=== PATIENT | female | born 1945 ===

== ENCOUNTER → 2017-05-15 | Outpatient (CLI) | payer MEDICARE, OTHER ==
[~2017-05-15] MED LIST: ACET325 PO; AMLO5 PO; AMOCLA875 PO; ASPI325 PO; ASPI81CH PO; ATOR10 PO; ATOR80 PO; Amaryl1 MG PO; BISA10S PR; CLOP75 PO; Culturelle1 CAP PO; D3-20002000 UNIT PO; DOCU100; DOCU100 PO; FLUO10 PO; GLIM2 PO; Glimepiride1 MG PO; HYDCHL12.5 PO; HYDR1TAB94 PO; INSLI75/25; Imdur30 MG PO; Invanz1 GM IJ; Keflex500 MG PO; MAGCIT300 PO; METF500; METF500 PO; METO100ER; METO100ER PO; METO25 PO; Macrobid 100 M100 MG PO; Miralax17 GM PO; NITR100CA PO; Novolog Fl100 UNIT/1 SC; OLME20 PO; OMEPRAZOLE MAGN20 MG PO; ONDA4 PO; OXYACE5T PO; PANT40 PO; Pantoprazole So40 MG PO; Percocet 5-3251 EACH PO; SULTRIDS PO; Zofran4 MG PO
[2017-05-15 18:31] LABS: Appearance, Urine Turbid (Clear); Blood, Urine 5+ (Neg); Color, Urine Yellow (P-Yellow); Glucose Qualitative, Urine 4+ (Neg); Ketones, Urine 1+ (Neg); Leukocyte Esterase, Urine 3+ (Neg); Nitrite, Urine Neg (Neg); Protein, Urine 3+ (Neg); Specific Gravity, Urine 1.025 (1.003-1.022); Urobilinogen, Urine 2+ (Normal)
[2017-05-15 19:00] LABS: Bilirubin, Urine 1+ (Neg)
[2017-05-15 19:02] LABS: Bacteria Mod /hpf; Red Blood Cells, Urine TNTC /hpf (0-2); Squamous Epithelial Cells Few /hpf (Few); White Blood Cells, Urine TNTC /hpf (0-5)
[2017-05-15 19:07] LABS: U Amphetamine Screen Not Detected; U Barbituate Screen Not Detected; U Benzodiazapine Screen DETECTED; U Buprenorphine Screen Not Detected; U Cannabinoids Screen Not Detected; U Cocaine Screen Not Detected; U Methadone Screen Not Detected; U Methamphetamine Screen Not Detected; U Opiates Screen Not Detected; U Oxycodone Screen Not Detected; U Phencyclidine Screen Not Detected; U Propoxyphene Screen Not Detected
== END | disposition home or self-care (01) ==
LOC: LAB 18:05
PROVIDERS: Internal Medicine Hematology & Oncology
DX: N95.0 Postmenopausal bleeding (principal); Z79.899 Other long term (current) drug therapy
CPT/HCPCS: 81001; 87077; 87086; 87186

== ENCOUNTER 2017-05-31 14:06 | Observation (INO) | payer MEDICARE, OTHER ==
[~2017-05-31] VITALS: Ht 142.2 cm; Wt 72.6 kg
[~2017-05-31 14:06] MED LIST changes: -NITR100CA PO; -ONDA4 PO
[2017-05-31 16:36] LABS: BASOPHILS ABSOLUTE AUTO 0.04 K/mm3 (0.00-0.23); BASOPHILS PERCENT AUTO 1 % (0-2); EOSINOPHILS ABSOLUTE AUTO 0.11 K/mm3 (0.00-0.68); EOSINOPHILS PERCENT AUTO 1 % (0-6); Hematocrit 39.6 % (33.0-51.0); Hemoglobin 13.2 g/dL (11.5-16.0); IMMATURE GRAN ABSOLUTE AUTO 0.02 K/mm3 (0.00-0.10); IMMATURE GRAN PERCENT AUTO 0 % (0-1); LYMPHOCYTES ABSOLUTE AUTO 1.47 K/mm3 (0.84-5.20); LYMPHOCYTES PERCENT AUTO 17 % (21-46); MONOCYTES ABSOLUTE AUTO 0.33 K/mm3 (0.16-1.47); MONOCYTES PERCENT AUTO 4 % (4-13); Mean Corpuscular HGB 28.9 pg (26.0-34.0); Mean Corpuscular HGB Conc 33.3 g/dL (31.5-36.5); Mean Corpuscular Volume 87 fL (80-100); Mean Platelet Volume 12.3 fL (9.1-12.4); NEUTROPHILS ABSOLUTE AUTO 6.57 K/mm3 (1.96-9.15); NEUTROPHILS PERCENT AUTO 77 % (41-73); Platelet Count 198 K/mm3 (150-400); RDW Coefficient Variation 12.1 % (11.7-14.2); RDW Standard Deviation 38.8 fL (35.1-46.3); Red Blood Cell Count 4.56 M/mm3 (3.80-5.20); White Blood Cell Count 8.54 K/mm3 (4.00-11.30)
[2017-05-31 17:02] LABS: Alanine Aminotransfer (ALT/SGP 27 U/L (12-78); Alk Phos 201 U/L (50-136); Anion Gap 7 mmol/L (6-16); Aspartate Aminotrans (AST/SGOT 21 U/L (12-37); Bilirubin, Total 0.7 mg/dL (0.1-1.0); Blood Urea Nitrogen 30 mg/dL (8-24); Bun/Creatinine Ratio 33.5 (12.0-20.0); CO2, Blood 28 mmol/L (21-32); Calcium, Blood 9.2 mg/dL (8.5-10.1); Chloride, Blood 103 mmol/L (98-108); Globulin, Blood 4.2 g/dL (2.2-4.0); Glomerular Filtration Rate >60 (60-); Glucose, Blood 154 mg/dL (70-99); Potassium, Blood 4.4 mmol/L (3.5-5.5); Sodium, Blood 138 mmol/L (136-145); Total Protein, Blood 8.2 g/dL (6.4-8.2); Troponin I <0.015 ng/mL (0.000-0.040)
[2017-05-31 18:36] LABS: Source, Urine Voided
[2017-05-31 18:39] LABS: Bilirubin, Urine Neg (Neg); Blood, Urine 4+ (Neg); Glucose Qualitative, Urine Neg (Neg); Ketones, Urine Neg (Neg); Leukocyte Esterase, Urine 2+ (Neg); Nitrite, Urine Pos (Neg); Protein, Urine 2+ (Neg); Urobilinogen, Urine 1+ (Normal)
[2017-05-31 19:09] LABS: Appearance, Urine Hazy (Clear); Color, Urine Yellow (P-Yellow); Squamous Epithelial Cells Many /hpf (Few)
[2017-05-31 19:10] LABS: Bacteria Many /hpf
[2017-06-01] MEDS ORDERED: ACET325 PO (08:57)
[2017-06-01] MEDS ORDERED: ONDA4 PO (08:58)
[2017-06-01] MEDS ORDERED: NITR100CA PO (08:58)
== END 2017-06-01 11:39 | disposition home or self-care (01) ==
LOC: ER 14:06 → MEDS 14:07 → ER 14:07 → MEDS 23:30 → ENPENDDIS 06-01 09:46 → EDPENDDIS 06-01 09:46 → MEDS 06-01 11:39
PROVIDERS: Emergency Medicine; Physician Assistant
DX: R07.89 Other chest pain (principal); N39.0 Urinary tract infection, site not specified; K21.9 Gastro-esophageal reflux disease without esophagitis; R11.2 Nausea with vomiting, unspecified; R31.9 Hematuria, unspecified; I10 Essential (primary) hypertension; E11.9 Type 2 diabetes mellitus without complications; Z86.73 Personal history of transient ischemic attack (TIA), and cerebral infarction without residual deficits; Z90.49 Acquired absence of other specified parts of digestive tract; Z79.82 Long term (current) use of aspirin; Z79.01 Long term (current) use of anticoagulants; Z79.899 Other long term (current) drug therapy
CPT/HCPCS: 36415; 71046; 74176; 80053; 81001; 82947; 83690; 84484; 85025; 87077; 87086; 87186; 93005; 93010; 96374; 96375; 99285; G0378; J1885; J2405

== ENCOUNTER → 2017-06-29 | Outpatient (CLI) | payer MEDICARE, OTHER ==
[~2017-06-29] MED LIST changes: +NITR100CA PO; +ONDA4 PO
[2017-06-29 18:36] LABS: Appearance, Urine Cloudy (Clear); Blood, Urine 3+ (Neg); Color, Urine Yellow (P-Yellow); Glucose Qualitative, Urine 1+ (Neg); Ketones, Urine 2+ (Neg); Leukocyte Esterase, Urine 3+ (Neg); Nitrite, Urine Neg (Neg); Protein, Urine 3+ (Neg); Specific Gravity, Urine 1.025 (1.003-1.022); Urobilinogen, Urine 2+ (Normal)
[2017-06-29 18:37] LABS: Bilirubin, Urine 2+ (Neg)
[2017-06-29 18:43] LABS: Bacteria Many /hpf; Red Blood Cells, Urine 0-2 /hpf (0-2); Squamous Epithelial Cells Mod /hpf (Few); White Blood Cells, Urine 25-50 /hpf (0-5)
== END ==
LOC: LAB 11:00
PROVIDERS: Internal Medicine Hematology & Oncology
DX: N39.0 Urinary tract infection, site not specified (principal)
CPT/HCPCS: 81001; 87077; 87086; 87186

== ENCOUNTER 2017-07-16 19:16 | Emergency (ER) | payer MEDICARE, OTHER ==
[~2017-07-16] VITALS: Ht 142.2 cm; Wt 72.6 kg
[2017-07-16 20:07] LABS: BASOPHILS ABSOLUTE AUTO 0.03 K/mm3 (0.00-0.23); BASOPHILS PERCENT AUTO 0 % (0-2); EOSINOPHILS ABSOLUTE AUTO 0.07 K/mm3 (0.00-0.68); EOSINOPHILS PERCENT AUTO 1 % (0-6); Hematocrit 38.8 % (33.0-51.0); Hemoglobin 13.1 g/dL (11.5-16.0); IMMATURE GRAN ABSOLUTE AUTO 0.02 K/mm3 (0.00-0.10); IMMATURE GRAN PERCENT AUTO 0 % (0-1); LYMPHOCYTES ABSOLUTE AUTO 1.64 K/mm3 (0.84-5.20); LYMPHOCYTES PERCENT AUTO 20 % (21-46); MONOCYTES ABSOLUTE AUTO 0.34 K/mm3 (0.16-1.47); MONOCYTES PERCENT AUTO 4 % (4-13); Mean Corpuscular HGB 29.1 pg (26.0-34.0); Mean Corpuscular HGB Conc 33.8 g/dL (31.5-36.5); Mean Corpuscular Volume 86 fL (80-100); Mean Platelet Volume 12.1 fL (9.1-12.4); NEUTROPHILS ABSOLUTE AUTO 6.02 K/mm3 (1.96-9.15); NEUTROPHILS PERCENT AUTO 74 % (41-73); Platelet Count 223 K/mm3 (150-400); RDW Coefficient Variation 13.1 % (11.7-14.2); White Blood Cell Count 8.12 K/mm3 (4.00-11.30)
[2017-07-16 20:26] LABS: Alanine Aminotransfer (ALT/SGP 26 U/L (12-78); Albumin, Blood 3.5 g/dL (3.4-5.0); Albumin/Globulin Ratio 0.9 (0.8-1.8); Alk Phos 167 U/L (50-136); Anion Gap 9 mmol/L (6-16); Aspartate Aminotrans (AST/SGOT 21 U/L (12-37); Bilirubin, Total 1.4 mg/dL (0.1-1.0); Blood Urea Nitrogen 22 mg/dL (8-24); Bun/Creatinine Ratio 22.4 (12.0-20.0); CO2, Blood 25 mmol/L (21-32); Calcium, Blood 8.6 mg/dL (8.5-10.1); Chloride, Blood 107 mmol/L (98-108); Creatinine, Blood 0.98 mg/dL (0.40-1.00); Globulin, Blood 3.8 g/dL (2.2-4.0); Glomerular Filtration Rate 59 (60-); Glucose, Blood 107 mg/dL (70-99); Potassium, Blood 3.8 mmol/L (3.5-5.5); Sodium, Blood 141 mmol/L (136-145); Total Protein, Blood 7.3 g/dL (6.4-8.2)
[2017-07-16 22:24] LABS: Troponin I <0.015 ng/mL (0.000-0.040)
[2017-07-16 23:15] LABS: Source, Urine Clean Catch
[2017-07-16 23:17] LABS: Magnesium, Blood 1.9 mg/dL (1.6-2.4)
[2017-07-16 23:19] LABS: Appearance, Urine Cloudy (Clear); Blood, Urine 2+ (Neg); Color, Urine Amber (P-Yellow); Glucose Qualitative, Urine Neg (Neg); Ketones, Urine 1+ (Neg); Leukocyte Esterase, Urine 3+ (Neg); Nitrite, Urine Pos (Neg); Protein, Urine 3+ (Neg); Urobilinogen, Urine 1+ (Normal)
[2017-07-16 23:28] LABS: Bilirubin, Urine 2+ (Neg)
[2017-07-16 23:29] LABS: Bacteria Many /hpf; Red Blood Cells, Urine 0-2 /hpf (0-2); Squamous Epithelial Cells Many /hpf (Few); White Blood Cells, Urine 50-100 /hpf (0-5)
== END 2017-07-17 00:59 | disposition home or self-care (01) ==
LOC: ER 19:16
PROVIDERS: Emergency Medicine
DX: I63.9 Cerebral infarction, unspecified (principal); R25.3 Fasciculation; R51 Headache; E11.9 Type 2 diabetes mellitus without complications; I10 Essential (primary) hypertension; Z79.899 Other long term (current) drug therapy; Z79.82 Long term (current) use of aspirin; Z79.02 Long term (current) use of antithrombotics/antiplatelets
CPT/HCPCS: 36415; 70450; 80053; 81001; 83690; 83735; 84484; 85025; 87077; 87086; 87186; 93005; 93010; 96360; 99284; J7120

== ENCOUNTER → 2017-08-10 | Outpatient (CLI) | payer MEDICARE, OTHER ==
[2017-08-10 12:49] LABS: Protein, Urine Quantitative 23.1 mg/dL (0.0-11.9)
== END | disposition home or self-care (01) ==
LOC: LAB EV 05:00
PROVIDERS: Internal Medicine Nephrology
DX: N18.3 Chronic kidney disease, stage 3 (moderate) (principal); D63.1 Anemia in chronic kidney disease; N25.81 Secondary hyperparathyroidism of renal origin; E55.9 Vitamin D deficiency, unspecified; E78.00 Pure hypercholesterolemia, unspecified
CPT/HCPCS: 81050; 82043; 84156

== ENCOUNTER → 2017-08-22 | Outpatient (CLI) | payer MEDICARE, OTHER ==
[2017-08-22 15:37] LABS: Source, Urine Clean Catch
[2017-08-22 16:47] LABS: Appearance, Urine Turbid (Clear); Blood, Urine 1+ (Neg); Color, Urine Yellow (P-Yellow); Glucose Qualitative, Urine Neg (Neg); Ketones, Urine 1+ (Neg); Leukocyte Esterase, Urine 3+ (Neg); Nitrite, Urine Neg (Neg); Protein, Urine 3+ (Neg); Urobilinogen, Urine 2+ (Normal)
[2017-08-22 16:53] LABS: Bilirubin, Urine 1+ (Neg)
[2017-08-22 16:56] LABS: Bacteria Many /hpf; Squamous Epithelial Cells Few /hpf (Few); White Blood Cells, Urine 50-100 /hpf (0-5)
== END | disposition home or self-care (01) ==
LOC: LAB 15:00 → LAB SHORT 15:00
PROVIDERS: Internal Medicine Hematology & Oncology
DX: N39.0 Urinary tract infection, site not specified (principal)
CPT/HCPCS: 81001

== ENCOUNTER → 2017-10-01 | Outpatient (CLI) | payer MEDICARE, OTHER ==
[2017-10-01 16:55] LABS: Appearance, Urine Hazy (Clear); Blood, Urine 1+ (Neg); Color, Urine Yellow (P-Yellow); Glucose Qualitative, Urine 3+ (Neg); Ketones, Urine 1+ (Neg); Leukocyte Esterase, Urine 3+ (Neg); Nitrite, Urine Pos (Neg); Protein, Urine 3+ (Neg); Specific Gravity, Urine 1.025 (1.003-1.022); Urobilinogen, Urine 1+ (Normal)
[2017-10-01 17:04] LABS: Bilirubin, Urine 1+ (Neg)
[2017-10-01 17:10] LABS: White Blood Cells, Urine TNTC /hpf (0-5)
[2017-10-01 17:11] LABS: Bacteria Many /hpf; Squamous Epithelial Cells Many /hpf (Few)
[2017-10-01 17:13] LABS: Renal Epithelial Rare /hpf ([, 0-Rare])
[2017-10-01 17:16] LABS: U Amphetamine Screen Not Detected; U Barbituate Screen Not Detected; U Benzodiazapine Screen DETECTED; U Cannabinoids Screen Not Detected; U Cocaine Screen Not Detected; U Methadone Screen Not Detected; U Methamphetamine Screen Not Detected; U Opiates Screen Not Detected; U Phencyclidine Screen Not Detected
[2017-10-01 17:17] LABS: U Buprenorphine Screen Not Detected; U Oxycodone Screen Not Detected; U Propoxyphene Screen Not Detected
== END | disposition home or self-care (01) ==
LOC: LAB SHORT 16:38 → LAB 16:38
PROVIDERS: Internal Medicine Hematology & Oncology
DX: N39.0 Urinary tract infection, site not specified (principal); Z79.899 Other long term (current) drug therapy
CPT/HCPCS: 81001; 87077; 87086; 87186

== ENCOUNTER 2018-02-17 14:20 | Emergency (ER) | payer MEDICARE, OTHER ==
[~2018-02-17] VITALS: Ht 147.3 cm; Wt 54.4 kg
== END 2018-02-17 16:27 | disposition home or self-care (01) ==
LOC: ER 14:20
DX: R51 Headache (principal); E11.9 Type 2 diabetes mellitus without complications; I10 Essential (primary) hypertension; Z79.899 Other long term (current) drug therapy; Z79.82 Long term (current) use of aspirin
CPT/HCPCS: 36415; 96374; 96375; 99282-25; J1200; J1885; J2765

== ENCOUNTER 2018-06-08 04:35 | Emergency (ER) | payer MEDICARE, OTHER ==
[~2018-06-08] VITALS: Ht 154.9 cm; Wt 90.7 kg
[2018-06-08 05:10] LABS: BASOPHILS ABSOLUTE AUTO 0.06 K/mm3 (0.00-0.23); BASOPHILS PERCENT AUTO 1 % (0-2); EOSINOPHILS ABSOLUTE AUTO 0.25 K/mm3 (0.00-0.68); EOSINOPHILS PERCENT AUTO 2 % (0-6); Hematocrit 42.7 % (33.0-51.0); IMMATURE GRAN ABSOLUTE AUTO 0.02 K/mm3 (0.00-0.10); IMMATURE GRAN PERCENT AUTO 0 % (0-1); LYMPHOCYTES ABSOLUTE AUTO 2.34 K/mm3 (0.84-5.20); LYMPHOCYTES PERCENT AUTO 22 % (21-46); MONOCYTES ABSOLUTE AUTO 0.59 K/mm3 (0.16-1.47); MONOCYTES PERCENT AUTO 6 % (4-13); Mean Corpuscular HGB 28.4 pg (26.0-34.0); Mean Corpuscular HGB Conc 32.8 g/dL (31.5-36.5); Mean Corpuscular Volume 87 fL (80-100); NEUTROPHILS ABSOLUTE AUTO 7.39 K/mm3 (1.96-9.15); NEUTROPHILS PERCENT AUTO 69 % (41-73); Platelet Count 173 K/mm3 (150-400); RDW Coefficient Variation 12.3 % (11.7-14.2); RDW Standard Deviation 38.8 fL (35.1-46.3); Red Blood Cell Count 4.93 M/mm3 (3.80-5.20); White Blood Cell Count 10.65 K/mm3 (4.00-11.30)
[2018-06-08 05:31] LABS: Alanine Aminotransfer (ALT/SGP 60 U/L (12-78); Albumin, Blood 3.6 g/dL (3.4-5.0); Albumin/Globulin Ratio 0.9 (0.8-1.8); Alk Phos 136 U/L (50-136); Anion Gap 6 mmol/L (6-16); Aspartate Aminotrans (AST/SGOT 92 U/L (12-37); Bilirubin, Total 0.6 mg/dL (0.1-1.0); Blood Urea Nitrogen 25 mg/dL (8-24); Bun/Creatinine Ratio 22.5 (12.0-20.0); CO2, Blood 26 mmol/L (21-32); Calcium, Blood 8.7 mg/dL (8.5-10.1); Chloride, Blood 107 mmol/L (98-108); Creatinine, Blood 1.11 mg/dL (0.40-1.00); Globulin, Blood 3.9 g/dL (2.2-4.0); Glomerular Filtration Rate 51 (60-); Glucose, Blood 136 mg/dL (70-99); Potassium, Blood 4.2 mmol/L (3.5-5.5); Sodium, Blood 139 mmol/L (136-145); Total Protein, Blood 7.5 g/dL (6.4-8.2); Troponin I <0.015 ng/mL (0.000-0.040)
== END 2018-06-08 08:36 | disposition home or self-care (01) ==
LOC: ER 04:35
PROVIDERS: Emergency Medicine
DX: J18.9 Pneumonia, unspecified organism (principal); E86.0 Dehydration; R07.9 Chest pain, unspecified; R51 Headache; Z79.899 Other long term (current) drug therapy; Z79.82 Long term (current) use of aspirin; E11.9 Type 2 diabetes mellitus without complications; I10 Essential (primary) hypertension; Z86.73 Personal history of transient ischemic attack (TIA), and cerebral infarction without residual deficits
CPT/HCPCS: 36415; 70450; 71046; 80053; 83690; 83880; 84484; 85025; 93005; 93010; J7030

== ENCOUNTER 2018-11-10 08:52 | Emergency (ER) | payer MEDICARE, OTHER ==
[~2018-11-10] VITALS: Ht 152.4 cm; Wt 52.6 kg
[2018-11-10 10:15] LABS: BASOPHILS ABSOLUTE AUTO 0.04 K/mm3 (0.00-0.23); BASOPHILS PERCENT AUTO 1 % (0-2); EOSINOPHILS ABSOLUTE AUTO 0.32 K/mm3 (0.00-0.68); EOSINOPHILS PERCENT AUTO 4 % (0-6); Hematocrit 39.4 % (33.0-51.0); IMMATURE GRAN ABSOLUTE AUTO 0.01 K/mm3 (0.00-0.10); IMMATURE GRAN PERCENT AUTO 0 % (0-1); LYMPHOCYTES ABSOLUTE AUTO 2.47 K/mm3 (0.84-5.20); LYMPHOCYTES PERCENT AUTO 34 % (21-46); MONOCYTES ABSOLUTE AUTO 0.53 K/mm3 (0.16-1.47); MONOCYTES PERCENT AUTO 7 % (4-13); Mean Corpuscular HGB 29.1 pg (26.0-34.0); Mean Corpuscular Volume 88 fL (80-100); Mean Platelet Volume 12.6 fL (9.1-12.4); NEUTROPHILS ABSOLUTE AUTO 3.88 K/mm3 (1.96-9.15); NEUTROPHILS PERCENT AUTO 54 % (41-73); Platelet Count 174 K/mm3 (150-400); RDW Coefficient Variation 11.9 % (11.7-14.2); RDW Standard Deviation 38.6 fL (35.1-46.3); Red Blood Cell Count 4.46 M/mm3 (3.80-5.20); White Blood Cell Count 7.25 K/mm3 (4.00-11.30)
[2018-11-10] MEDS ORDERED: ATORVASTATIN CA40 MG PO (10:24)
[2018-11-10] MEDS ORDERED: Amlodipine Bes2.5 MG PO (10:24)
[2018-11-10] MEDS ORDERED: Protonix40 MG PO (10:25)
[2018-11-10] MEDS ORDERED: Hydrocodone-Ap1 EA23 PO (10:25)
[2018-11-10] MEDS ORDERED: TOUJEO SOL300 UNIT/1 SQ (10:26)
[2018-11-10 10:35] LABS: Albumin, Blood 3.7 g/dL (3.4-5.0); Bilirubin, Total 0.4 mg/dL (0.1-1.0); Bun/Creatinine Ratio 23.4 (12.0-20.0); Calcium, Blood 8.3 mg/dL (8.5-10.1); Creatinine, Blood 1.07 mg/dL (0.40-1.00); Globulin, Blood 3.7 g/dL (2.2-4.0); Potassium, Blood 4.4 mmol/L (3.5-5.5); Total Protein, Blood 7.4 g/dL (6.4-8.2)
== END 2018-11-10 11:23 | disposition home or self-care (01) ==
LOC: ER 08:52
PROVIDERS: Physician Assistant
DX: F41.9 Anxiety disorder, unspecified (principal); N28.9 Disorder of kidney and ureter, unspecified; Z79.899 Other long term (current) drug therapy; Z79.891 Long term (current) use of opiate analgesic; Z79.82 Long term (current) use of aspirin; E11.9 Type 2 diabetes mellitus without complications; I10 Essential (primary) hypertension; Z86.73 Personal history of transient ischemic attack (TIA), and cerebral infarction without residual deficits
CPT/HCPCS: 36415; 70450; 80053; 82947; 85025; 93005; 93010; 99284-25

== ENCOUNTER 2019-01-08 15:38 | Emergency (ER) | payer MEDICARE, OTHER ==
[~2019-01-08] VITALS: Ht 162.6 cm; Wt 81.7 kg
[~2019-01-08 15:38] MED LIST changes: +ATORVASTATIN CA40 MG PO; +Amlodipine Bes2.5 MG PO; +Hydrocodone-Ap1 EA23 PO; +Protonix40 MG PO; +TOUJEO SOL300 UNIT/1 SQ
[2019-01-08 16:14] LABS: BASOPHILS ABSOLUTE AUTO 0.04 K/mm3 (0.00-0.23); BASOPHILS PERCENT AUTO 1 % (0-2); EOSINOPHILS ABSOLUTE AUTO 0.13 K/mm3 (0.00-0.68); EOSINOPHILS PERCENT AUTO 2 % (0-6); Hematocrit 40.9 % (33.0-51.0); Hemoglobin 13.4 g/dL (11.5-16.0); IMMATURE GRAN ABSOLUTE AUTO 0.03 K/mm3 (0.00-0.10); IMMATURE GRAN PERCENT AUTO 0 % (0-1); LYMPHOCYTES ABSOLUTE AUTO 2.54 K/mm3 (0.84-5.20); LYMPHOCYTES PERCENT AUTO 29 % (21-46); MONOCYTES ABSOLUTE AUTO 0.54 K/mm3 (0.16-1.47); MONOCYTES PERCENT AUTO 6 % (4-13); Mean Corpuscular HGB 29.5 pg (26.0-34.0); Mean Corpuscular HGB Conc 32.8 g/dL (31.5-36.5); Mean Corpuscular Volume 90 fL (80-100); NEUTROPHILS ABSOLUTE AUTO 5.54 K/mm3 (1.96-9.15); NEUTROPHILS PERCENT AUTO 63 % (41-73); Platelet Count 158 K/mm3 (150-400); RDW Coefficient Variation 12.5 % (11.7-14.2); RDW Standard Deviation 41.2 fL (35.1-46.3); Red Blood Cell Count 4.55 M/mm3 (3.80-5.20); White Blood Cell Count 8.82 K/mm3 (4.00-11.30)
[2019-01-08 16:37] LABS: Albumin, Blood 3.4 g/dL (3.4-5.0); Albumin/Globulin Ratio 0.8 (0.8-1.8); Bilirubin, Total 0.6 mg/dL (0.1-1.0); Bun/Creatinine Ratio 23.1 (12.0-20.0); Calcium, Blood 8.7 mg/dL (8.5-10.1); Creatinine, Blood 1.17 mg/dL (0.40-1.00); Potassium, Blood 3.8 mmol/L (3.5-5.5); Total Protein, Blood 7.4 g/dL (6.4-8.2)
[2019-01-08] MEDS ORDERED: Esgic Tablet1 EACH PO (18:07)
== END 2019-01-08 18:20 | disposition home or self-care (01) ==
LOC: ER 15:38
PROVIDERS: Emergency Medicine
DX: R51 Headache (principal); Z79.899 Other long term (current) drug therapy; Z79.891 Long term (current) use of opiate analgesic; Z79.4 Long term (current) use of insulin; E11.9 Type 2 diabetes mellitus without complications; I10 Essential (primary) hypertension; Z86.73 Personal history of transient ischemic attack (TIA), and cerebral infarction without residual deficits
CPT/HCPCS: 36415; 80053; 85025; 96374; 96375; 99284-25; J1200; J1885; J2765

== ENCOUNTER → 2019-01-20 | Outpatient (CLI) | payer MEDICARE, OTHER ==
[~2019-01-20] MED LIST changes: +Esgic Tablet1 EACH PO
[2019-01-20 14:45] LABS: Albumin, Blood 3.3 g/dL (3.4-5.0); Bilirubin, Total 0.2 mg/dL (0.1-1.0); Bun/Creatinine Ratio 16.3 (12.0-20.0); Calcium, Blood 8.1 mg/dL (8.5-10.1); Creatinine, Blood 1.23 mg/dL (0.40-1.00); Globulin, Blood 3.2 g/dL (2.2-4.0); Potassium, Blood 4.5 mmol/L (3.5-5.5); Total Protein, Blood 6.5 g/dL (6.4-8.2)
== END | disposition home or self-care (01) ==
LOC: LAB SHORT 13:00 → LAB 13:00
PROVIDERS: Internal Medicine Hematology & Oncology
DX: E11.65 Type 2 diabetes mellitus with hyperglycemia (principal); R51 Headache
CPT/HCPCS: 80053

== ENCOUNTER 2019-06-05 10:18 | Day surgery (SDC) | payer OTHER ==
[~2019-06-05 10:18] MED LIST changes: +AMLODIPINE BES2.5 MG PO; +ATOR40TA PO; +Aspir 8181 MG PO; +GABA100 PO; +IBUP200 PO; +INSULANPEN SC; +Isosorbide Mono30 MG PO; +Norco 5-325 Ta1 EACH PO; +OMEP20ER PO; +PLAVIX75 MG PO; +TOUJEO SOL300 UNIT/1 SC
== END 2019-06-05 11:10 | disposition home or self-care (01) ==
LOC: ORSCMMR 10:18 → ORSCSDS 10:18
DX: Z12.11 Encounter for screening for malignant neoplasm of colon (principal); Z53.9 Procedure and treatment not carried out, unspecified reason
CPT/HCPCS: J2704; J7120

== ENCOUNTER → 2019-09-02 | Outpatient (CLI) | payer OTHER ==
[2019-09-02 11:34] LABS: U Amphetamine Screen Not Detected; U Barbituate Screen Not Detected; U Benzodiazapine Screen Not Detected; U Buprenorphine Screen Not Detected; U Cannabinoids Screen Not Detected; U Cocaine Screen Not Detected; U Methadone Screen Not Detected; U Methamphetamine Screen Not Detected; U Opiates Screen DETECTED; U Oxycodone Screen Not Detected; U Phencyclidine Screen Not Detected; U Propoxyphene Screen Not Detected; U Tricyclic Antidepressant Scr Not Detected
== END | disposition home or self-care (01) ==
PROVIDERS: Internal Medicine Hematology & Oncology
DX: Z51.81 Encounter for therapeutic drug level monitoring (principal); Z79.899 Other long term (current) drug therapy

== ENCOUNTER → 2019-09-26 | Outpatient (CLI) | payer OTHER ==
[~2019-09-26] MED LIST changes: +ASPIR 8181 M1 PO; +ATORVASTATIN CA40 M1 PO; +Advil Migraine200 MG PO; +BASAGLAR K100 UNIT/1 SC; +FLUOXETINE HCL10 M1 PO; +GLUC500 PO; +TOUJEO SOL300 UNIT/2 SC
[2019-09-26 14:51] LABS: U Amphetamine Screen Not Detected; U Barbituate Screen Not Detected; U Benzodiazapine Screen Not Detected; U Buprenorphine Screen Not Detected; U Cannabinoids Screen Not Detected; U Cocaine Screen Not Detected; U Methadone Screen Not Detected; U Methamphetamine Screen Not Detected; U Opiates Screen Not Detected; U Oxycodone Screen Not Detected; U Phencyclidine Screen Not Detected; U Propoxyphene Screen Not Detected
== END ==
LOC: LAB 09:50 → LAB SHORT 09:50
PROVIDERS: Internal Medicine Hematology & Oncology
DX: Z51.81 Encounter for therapeutic drug level monitoring (principal); Z79.891 Long term (current) use of opiate analgesic

== ENCOUNTER 2019-09-30 12:27 | Day surgery (SDC) | payer OTHER ==
--- NOTE | 2019-09-30 13:37 | NUR ---
09/30/19 1337 Sylvia Pak PT'S PROCEDURE CANCELLED IN PREOP DUE TO PT NOT BEING OFF PLAVIX FOR 5 DAYS, ONLY 2-3 DAYS PER [facility] AND . MD TIRADO CANCELLED CASE BEFORE IV WAS STARTED.
== END 2019-09-30 13:10 | disposition home or self-care (01) ==
LOC: ORSCSDS 12:27
DX: Z12.11 Encounter for screening for malignant neoplasm of colon (principal); Z53.9 Procedure and treatment not carried out, unspecified reason
CPT/HCPCS: J2704; J7120

== ENCOUNTER → 2019-12-18 | Outpatient (CLI) | payer OTHER ==
[2019-12-18 12:18] LABS: Source, Urine Clean Catch
[2019-12-18 12:27] LABS: Bilirubin, Urine Neg (Neg); Blood, Urine 2+ (Neg); Glucose Qualitative, Urine 4+ (Neg); Ketones, Urine Neg (Neg); Leukocyte Esterase, Urine 3+ (Neg); Nitrite, Urine Pos (Neg); Protein, Urine 3+ (Neg); Urobilinogen, Urine NORM (Normal)
[2019-12-18 12:34] LABS: Appearance, Urine Cloudy (Clear); Color, Urine Yellow (P-Yellow)
[2019-12-18 12:36] LABS: Bacteria Many /hpf; Squamous Epithelial Cells Many /hpf (Few); White Blood Cells, Urine 25-50 /hpf (0-5)
[2019-12-18 12:37] LABS: Amorphous Light (0-Heavy)
== END | disposition home or self-care (01) ==
LOC: LAB SHORT 12:17 → LAB 12:17
PROVIDERS: Internal Medicine Hematology & Oncology
DX: N39.0 Urinary tract infection, site not specified (principal)
CPT/HCPCS: 81001; 87077; 87086; 87186

== ENCOUNTER → 2020-01-13 | Outpatient (CLI) | payer OTHER ==
[2020-01-13 18:07] LABS: U Amphetamine Screen Not Detected; U Barbituate Screen Not Detected; U Benzodiazapine Screen Not Detected; U Buprenorphine Screen Not Detected; U Cannabinoids Screen Not Detected; U Cocaine Screen Not Detected; U Methadone Screen Not Detected; U Methamphetamine Screen Not Detected; U Opiates Screen Not Detected; U Oxycodone Screen Not Detected; U Phencyclidine Screen Not Detected; U Propoxyphene Screen Not Detected
== END ==
LOC: LAB SHORT 16:23 → LAB 16:23
PROVIDERS: Internal Medicine Hematology & Oncology
DX: I10 Essential (primary) hypertension (principal); R30.0 Dysuria; Z79.891 Long term (current) use of opiate analgesic

== ENCOUNTER 2020-02-03 06:41 | Day surgery (SDC) | payer OTHER ==
--- NOTE | 2020-02-03 08:37 | NUR ---
02/03/20 0837 Rosemary Peraza V SENSATIVE TO PROPOFOL (EASY TO SEDATE), WOULD START WITH 30MG OF PROPOFOL INSTEAD OF 40MG. O2 AND BP DROPPED IN BEGINING OF PROCEDURE BUT RECOVERED AFTER INITIAL DOSING OF SEDATION.
--- NOTE | 2020-02-03 09:20 | NUR ---
02/03/20 0920 Lilliam Beltre LATE ENTRY. 3 UNSUCCESSFUL ATTEMPTS AT IV PLACEMENT. SUCCESSFUL ATTEMPT TO LEFT FOREARM WITH 22G IV. PT TOLERATED WELL.
[2020-02-04] MEDS ORDERED: HYDROCODONE-AC1 EAC9 PO (18:43)
[2020-02-04] MEDS ORDERED: PARO10 PO (23:29)
[2020-02-04] MEDS ORDERED: BENZ100A PO (23:31)
[2020-02-04] MEDS ORDERED: NITR100CA PO (23:32)
== END 2020-02-03 09:14 | disposition home or self-care (01) ==
LOC: ORSCSDS 06:41
PROVIDERS: Student in an Organized Health Care Education/Training Program
PROC: 0DBN8ZX Excision of Sigmoid Colon, Via Natural or Artificial Opening Endoscopic, Diagnostic (ICD-10-PCS; principal; 2020-02-03 08:00)
PROC: 0DBK8ZX Excision of Ascending Colon, Via Natural or Artificial Opening Endoscopic, Diagnostic (ICD-10-PCS; principal; 2020-02-03 08:00)
DX: Z12.11 Encounter for screening for malignant neoplasm of colon (principal); K63.5 Polyp of colon; Z80.0 Family history of malignant neoplasm of digestive organs; E11.9 Type 2 diabetes mellitus without complications; I10 Essential (primary) hypertension; I25.10 Atherosclerotic heart disease of native coronary artery without angina pectoris; Z79.01 Long term (current) use of anticoagulants; Z79.82 Long term (current) use of aspirin; Z79.84 Long term (current) use of oral hypoglycemic drugs; Z79.899 Other long term (current) drug therapy
CPT/HCPCS: 82947; 88305; J0330; J0461; J2405; J2704; J7120

== ENCOUNTER 2020-02-04 11:51 | Inpatient (IN) | payer OTHER ==
[~2020-02-04] VITALS: Ht 142.2 cm; Wt 71.2 kg
[~2020-02-04 11:51] MED LIST changes: -ASPIR 8181 M1 PO; -ATORVASTATIN CA40 M1 PO; -BASAGLAR K100 UNIT/1 SC; -FLUOXETINE HCL10 M1 PO
[2020-02-04 16:34] LABS: BASOPHILS ABSOLUTE AUTO 0.01 K/mm3 (0.00-0.23); BASOPHILS PERCENT AUTO 0 % (0-2); EOSINOPHILS PERCENT AUTO 0 % (0-6); Hematocrit 37.4 % (33.0-51.0); Hemoglobin 12.1 g/dL (11.5-16.0); IMMATURE GRAN ABSOLUTE AUTO 0.01 K/mm3 (0.00-0.10); IMMATURE GRAN PERCENT AUTO 0 % (0-1); LYMPHOCYTES ABSOLUTE AUTO 0.96 K/mm3 (0.84-5.20); LYMPHOCYTES PERCENT AUTO 14 % (21-46); MONOCYTES ABSOLUTE AUTO 0.32 K/mm3 (0.16-1.47); MONOCYTES PERCENT AUTO 5 % (4-13); Mean Corpuscular HGB 28.3 pg (26.0-34.0); Mean Corpuscular HGB Conc 32.4 g/dL (31.5-36.5); Mean Corpuscular Volume 88 fL (80-100); Mean Platelet Volume 12.7 fL (9.1-12.4); NEUTROPHILS ABSOLUTE AUTO 5.56 K/mm3 (1.96-9.15); NEUTROPHILS PERCENT AUTO 81 % (41-73); Platelet Count 132 K/mm3 (150-400); RDW Coefficient Variation 12.4 % (11.7-14.2); RDW Standard Deviation 39.8 fL (35.1-46.3); Red Blood Cell Count 4.27 M/mm3 (3.80-5.20); White Blood Cell Count 6.86 K/mm3 (4.00-11.30)
[2020-02-04 16:55] LABS: Albumin, Blood 3.2 g/dL (3.4-5.0); Albumin/Globulin Ratio 0.8 (0.8-1.8); Bilirubin, Total 0.6 mg/dL (0.1-1.0); Bun/Creatinine Ratio 21.9 (12.0-20.0); Creatinine, Blood 1.46 mg/dL (0.40-1.00); Globulin, Blood 3.8 g/dL (2.2-4.0); Potassium, Blood 3.6 mmol/L (3.5-5.5)
[2020-02-04 19:20] LABS: International Normalized Ratio 0.96; Prothrombin Time Results 10.3 Sec (9.7-11.5)
[2020-02-04] MEDS ORDERED: BENZ100A PO (23:31)
[2020-02-04] MEDS ORDERED: NITR100CA PO (23:32)
[2020-02-05 01:25] LABS: BASOPHILS ABSOLUTE AUTO 0.01 K/mm3 (0.00-0.23); BASOPHILS PERCENT AUTO 0 % (0-2); EOSINOPHILS PERCENT AUTO 0 % (0-6); Hematocrit 35.5 % (33.0-51.0); Hemoglobin 11.6 g/dL (11.5-16.0); IMMATURE GRAN ABSOLUTE AUTO 0.01 K/mm3 (0.00-0.10); IMMATURE GRAN PERCENT AUTO 0 % (0-1); LYMPHOCYTES ABSOLUTE AUTO 1.65 K/mm3 (0.84-5.20); LYMPHOCYTES PERCENT AUTO 30 % (21-46); MONOCYTES ABSOLUTE AUTO 0.26 K/mm3 (0.16-1.47); MONOCYTES PERCENT AUTO 5 % (4-13); Mean Corpuscular HGB 28.6 pg (26.0-34.0); Mean Corpuscular HGB Conc 32.7 g/dL (31.5-36.5); Mean Corpuscular Volume 87 fL (80-100); Mean Platelet Volume 12.7 fL (9.1-12.4); NEUTROPHILS ABSOLUTE AUTO 3.66 K/mm3 (1.96-9.15); NEUTROPHILS PERCENT AUTO 65 % (41-73); Platelet Count 120 K/mm3 (150-400); RDW Coefficient Variation 12.6 % (11.7-14.2); RDW Standard Deviation 40.5 fL (35.1-46.3); Red Blood Cell Count 4.06 M/mm3 (3.80-5.20); White Blood Cell Count 5.59 K/mm3 (4.00-11.30)
[2020-02-05 01:43] LABS: Albumin/Globulin Ratio 0.8 (0.8-1.8); Bilirubin, Total 0.5 mg/dL (0.1-1.0); Bun/Creatinine Ratio 21.1 (12.0-20.0); Calcium, Blood 7.5 mg/dL (8.5-10.1); Creatinine, Blood 1.85 mg/dL (0.40-1.00); Globulin, Blood 3.6 g/dL (2.2-4.0); Potassium, Blood 3.4 mmol/L (3.5-5.5); Total Protein, Blood 6.6 g/dL (6.4-8.2)
--- NOTE | 2020-02-05 14:21 | NUR ---
Echocardiogram performed.
[2020-02-05 17:40] LABS: Base Excess Venous 0.1 mmol/L; Bicarbonate Venous 24.3 mmol/L (24.0-30.0); PCO2 Venous 34.1 mmHg (38-42); PO2 Venous 33.8 mmHg (38-42); pH Blood Venous 7.46 (7.34-7.37)
[2020-02-05 17:50] LABS: Influenza A Negative (NEGATIVE); Influenza B Negative (NEGATIVE)
--- NOTE | 2020-02-05 19:33 | NUR ---
SHIFT SUMMARY PT IS ALERT AND ORIENTED, FOLLOWS COMMANDS. PHONE INTERPRETOR UTILIZED WITH PT INTERACTIONS. TEMP MAX TODAY WAS 101.2. ORDERS THIS MORNING RECEIVED TO PLACE PT IN ISOLATION AND R/O COVID. PT CAME BACK POSITIVE FOR COVID AND WAS MOVED TO PCU 16 THIS AFTERNOON FOR NEGATIVE AIR FLOW. IT WAS NOTED THAT PT WAS HAVING DIFFICULTY SWALLOWING MEDS AND COUGHING. PT WAS MADE NPO AND ORDERS RECIEVED FOR SPEECH EVAL. PT DIDN'T PASS SPEECH EVAL AND ORDERS RECIEVED FOR NG PLACEMENT FOR MEDICATION ADMINISTRATION WHICH THE PT& AGREED WITH. NG PLACED THIS EVENING, XRAY OBTAINED FOR PLACEMENT VERIFICATION. NOC SHIFT NOTIFIED AWAITING VERIFICATION. PT HAS REMAINED ON ROOM AIR TODAY, WITH SPO2 >92%, DENIES DYSPNEA. MONITOR HAS SHOWN PT TO BE IN SINUS RHYTHM.
[2020-02-05 19:48] LABS: Source, Urine Catheter
[2020-02-05 19:52] LABS: Appearance, Urine Cloudy (Clear); Bilirubin, Urine Neg (Neg); Blood, Urine 4+ (Neg); Color, Urine Yellow (P-Yellow); Glucose Qualitative, Urine Neg (Neg); Ketones, Urine 1+ (Neg); Leukocyte Esterase, Urine 1+ (Neg); Nitrite, Urine Pos (Neg); Protein, Urine 3+ (Neg); Specific Gravity, Urine 1.015 (1.003-1.022); Urobilinogen, Urine NORM (Normal)
[2020-02-05 20:13] LABS: Amorphous Heavy (0-Heavy); Bacteria Mod /hpf; Red Blood Cells, Urine 0-2 /hpf (0-2); Squamous Epithelial Cells Rare /hpf (Few)
[2020-02-06 04:30] LABS: BASOPHILS ABSOLUTE AUTO 0.01 K/mm3 (0.00-0.23); BASOPHILS PERCENT AUTO 0 % (0-2); EOSINOPHILS PERCENT AUTO 0 % (0-6); Hematocrit 32.8 % (33.0-51.0); Hemoglobin 10.8 g/dL (11.5-16.0); IMMATURE GRAN ABSOLUTE AUTO 0.03 K/mm3 (0.00-0.10); IMMATURE GRAN PERCENT AUTO 1 % (0-1); LYMPHOCYTES ABSOLUTE AUTO 1.28 K/mm3 (0.84-5.20); LYMPHOCYTES PERCENT AUTO 27 % (21-46); MONOCYTES ABSOLUTE AUTO 0.27 K/mm3 (0.16-1.47); MONOCYTES PERCENT AUTO 6 % (4-13); Mean Corpuscular HGB 28.5 pg (26.0-34.0); Mean Corpuscular HGB Conc 32.9 g/dL (31.5-36.5); Mean Corpuscular Volume 87 fL (80-100); Mean Platelet Volume 12.2 fL (9.1-12.4); NEUTROPHILS ABSOLUTE AUTO 3.19 K/mm3 (1.96-9.15); NEUTROPHILS PERCENT AUTO 67 % (41-73); Platelet Count 124 K/mm3 (150-400); RDW Coefficient Variation 12.6 % (11.7-14.2); RDW Standard Deviation 40.4 fL (35.1-46.3); Red Blood Cell Count 3.79 M/mm3 (3.80-5.20); White Blood Cell Count 4.78 K/mm3 (4.00-11.30)
[2020-02-06 04:47] LABS: Albumin, Blood 2.5 g/dL (3.4-5.0); Albumin/Globulin Ratio 0.7 (0.8-1.8); Bilirubin, Total 0.3 mg/dL (0.1-1.0); Bun/Creatinine Ratio 24.9 (12.0-20.0); Calcium, Blood 7.2 mg/dL (8.5-10.1); Creatinine, Blood 0.97 mg/dL (0.40-1.00); Globulin, Blood 3.5 g/dL (2.2-4.0); Potassium, Blood 3.6 mmol/L (3.5-5.5)
--- NOTE | 2020-02-06 06:08 | NUR ---
SHIFT SUMMARY PT SLEEPIONG IN ROOM COMFORTABLY AT THIS TIME. NO ACUTE CHANGES IN STATUS T/O NIGHT. PT SLEPT WELL AND DENIED ANY CP OR SOB. DID REPORT SOME DISCOMFORT AT LARES INSERTION. STAT LOCK ADJUSTED AND PT REPORTED DISCOMFORT SUSBSIDED. NG TUBE IN PLACE, TUBE BECAME CLOGGED DURING START OF SHIFT AFTER MED ADMINISTRATION. AFTER SEVERAL HOURS OF ALLOWING TUBE TO SIT WITH CLEAR SODA IN PLACE, TUBE CLEARED AND FLUSHES EASILY NOW. NG TUBE CLAMPED AT THIS TIME, IN PLACE FOR SALES ASSISTANT ONLY AT THIS TIME. CALL LIGHT IN REACH.
--- NOTE | 2020-02-06 18:25 | NUR ---
SHIFT SUMMARY; A/A/OX3 DURING SHIFT WITH INTERMITANT CONFUSION. LARES CATH IN PLACE DRAINING CLEAR YELLOW URINE. REMAINS ON RA, VSS, D5 RATE CHANGED TO 50ML/HR PER DR. GODINEZ AT THIS TIME. CLEARED BY ST FOR HONEY THICK LIQUIDS TODAY, DRANK 1 CONTAINER OF HONEY TICK WATER, DENIES FOOD AT THIS TIME. CONTINUE D5 UNTIL APPETITE RESUMES. LINEN CHANGE AND BED BATH TODAY, INTERPERATURE PHONE USED, DENIES NEEDS OR PAIN, WILL CONTINUE TO MONITOR.
--- NOTE | 2020-02-07 02:23 | NUR ---
REFUSING MEDS PT REFUSED 2100 MEDICATIONS, INCLUDING METOPROLOL. PT STATS NOT WANTING TO TAKE THEM FOR REASONS INCLUDING: SHE ALREADY TOOK PILLS TODAY, THEY MAKE HER SLEEPY, THEY DONT TAST GOOD, ETC. PT OFFERED APPLESAUCE TO TAKE THEM WITH, EXPLAINED THAT THESE PILLS DO NOT CAUSE DROWSINESS, AND SHE WAS REPEATEDLY WARNED THAT HER BP WAS RISING, SBP 180'S. PT NOTED TO BE AXO AND MULTIPLE CONVERSATIONS WERE HAD WITH HER ON THE MONOTYPE SETTER PHONE. PT AWARE OF REPURCUSSIONS OF HTN AND NOT TAKING MEDICATIONS. BP RECHECKED AT 0225 AGAIN AND SBP NOTED TO HAVE DECREASED TO 150'S. WILL CONTINUE TO MONITOR.
[2020-02-07 04:52] LABS: BASOPHILS ABSOLUTE AUTO 0.01 K/mm3 (0.00-0.23); BASOPHILS PERCENT AUTO 0 % (0-2); EOSINOPHILS PERCENT AUTO 0 % (0-6); Hematocrit 35.4 % (33.0-51.0); Hemoglobin 11.7 g/dL (11.5-16.0); IMMATURE GRAN ABSOLUTE AUTO 0.03 K/mm3 (0.00-0.10); IMMATURE GRAN PERCENT AUTO 1 % (0-1); LYMPHOCYTES PERCENT AUTO 25 % (21-46); MONOCYTES ABSOLUTE AUTO 0.31 K/mm3 (0.16-1.47); MONOCYTES PERCENT AUTO 5 % (4-13); Mean Corpuscular HGB 28.6 pg (26.0-34.0); Mean Corpuscular HGB Conc 33.1 g/dL (31.5-36.5); Mean Corpuscular Volume 87 fL (80-100); Mean Platelet Volume 11.6 fL (9.1-12.4); NEUTROPHILS ABSOLUTE AUTO 4.38 K/mm3 (1.96-9.15); NEUTROPHILS PERCENT AUTO 69 % (41-73); Platelet Count 145 K/mm3 (150-400); RDW Coefficient Variation 12.7 % (11.7-14.2); RDW Standard Deviation 40.1 fL (35.1-46.3); Red Blood Cell Count 4.09 M/mm3 (3.80-5.20); White Blood Cell Count 6.33 K/mm3 (4.00-11.30)
[2020-02-07 05:14] LABS: Alanine Aminotransfer (ALT/SGP 30 U/L (12-78); Albumin, Blood 2.5 g/dL (3.4-5.0); Albumin/Globulin Ratio 0.7 (0.8-1.8); Alk Phos 49 U/L (50-136); Anion Gap 8 mmol/L (6-16); Aspartate Aminotrans (AST/SGOT 65 U/L (12-37); Bilirubin, Total 0.5 mg/dL (0.1-1.0); Blood Urea Nitrogen 17 mg/dL (8-24); Bun/Creatinine Ratio 18.8 (12.0-20.0); CO2, Blood 25 mmol/L (21-32); Calcium, Blood 7.3 mg/dL (8.5-10.1); Chloride, Blood 105 mmol/L (98-108); Creatinine, Blood 0.91 mg/dL (0.40-1.00); Globulin, Blood 3.8 g/dL (2.2-4.0); Glomerular Filtration Rate >60 (60-); Glucose, Blood 142 mg/dL (70-99); Potassium, Blood 3.5 mmol/L (3.5-5.5); Sodium, Blood 138 mmol/L (136-145); Total Protein, Blood 6.3 g/dL (6.4-8.2); Troponin I 0.113 ng/mL (0.000-0.040)
--- NOTE | 2020-02-07 06:20 | NUR ---
REFUSING MEDS SBP KENN BACK >170. PT EDUCATED ON THE SEVERITY OF THIS VIA SUPERVISOR ROLLER PRINTING PHONE. CONTINUES TO DENY BLOOD PRESSURE MEDICATION. PT ASKED IF SHE WOULD BE WILLING TO TAKE A DIFFERENT BLOOD PRESSURE MEDICATION, PT DENIES AT THIS TIME. PT PRESENTS AXO. WILL CONTINUE TO MONITOR.
--- NOTE | 2020-02-07 07:23 | NUR ---
SHIFT SUMMARY COMMUNICATION WITH PT WAS DIFFICULT T/O THE NIGHT, PT DID NOT WANT TO USE BIKE SHOP MANAGER PHONE, COULD ONLY TALK WITH HER FOR A COUPLE MINUTES THEN SHE WOULD HANG UP THE PHONE. PT REFUSED HER PM MEDS AFTER MULTIPLE ATTEMPTS TO EDUCATE AND COMMUNITCATE THE NEED AND DANGERS OF NOT TAKING PERSCRIBED MEDICATIONS. BP WAS HYPERTENSIVE T/O THE NIGHT PEAKING AT 174 SYSTOLIC, PT AGAIN EDUCATED IN THE IMPORTANCE OF MEDICATION ADHERENCE AND AGAIN REFUSED MEDS. PT WAS ALERT AND ORIENTED AND ABLE TO ANSWER QUESTIONS AND FOLLOW DIRECTIONS. D5.5NS RUNNING AT 50ML/HR T/O THE NIGHT WITH BLOOD GLUCOSE RNAGING FROM 154 AT START OF SHIFT TO 139 AT END OF SHIFT. PT WAS UP OUT OF BED ONCE STANDING NEXT TO BED. HR STABLE IN THE 90'S, O2 SATS STABLE IN THE 90'S ON ROOM AIR. PT IN STABLE CONDTION, WILL CONTINUE TO MONITOR UNTIL SHIFT CHANGE.
[2020-02-07 10:14] LABS: International Normalized Ratio 0.97; Prothrombin Time Results 10.4 Sec (9.7-11.5)
--- NOTE | 2020-02-07 12:51 | NUR ---
D5 STOPPED AT THIS TIME PER VERBAL ORDER FROM DR. LANDRY, PT NOW EATING SMALL AMOUNTS BS STABLE OVER THE LAST 24 HOURS. WILL CONTINUE TO MONITOR AND TREAT.
--- NOTE | 2020-02-07 18:03 | NUR ---
SHIFT SUMMARY; A/A/OX4 THROUGHOUT SHIFT. LARES CATH IN PLACE DRAINING CLEAR YELLOW URINE. VSS, ACHS BLOOD SUGARS THROUGHOUT DAY, GRADUALLY INCREASED PO INTAKE WITH ASSISTANCE FROM SPOUSE. D5 DC'D PER ORDERS DUE TO PO INTAKE AND STABLE BLOOD SUGARS. RA WITH CLEAR LUNG SOUNDS, NO S/SX OF SOB, PLAN OF CARE REVIEWED BY DOCTOR TODAY DISCUSSING POSSIBLE DISCHARGE TOMARROW, PLAN REVIEWED BY DOCTOR WITH SPOUSE. WILL CONTINUE TO MONITOR AND TREAT UNTIL CHANGE OF SHIFT.
--- NOTE | 2020-02-07 22:22 | NUR ---
ASSUMED CARE AT 1900 PT A/O, USING FINISHED CLOTH EXAMINER NEEDED FOR COMMUNICATION. PT HAS DIFFICULTY SWALLOWING, AND HAS NEEDED ENCOURAGEMENT TO TAKE MEDICATIONS. PO INTAKE ENCOURAGED PT HAS HAD LOW PO INTAKE PER REPORT. PT RESTING WITH CALL LIGHT, WATCHING TV.
--- NOTE | 2020-02-08 05:58 | NUR ---
SHIFT SUMMARY PT HAS BEEN A/O. USING TRANSLATION SERVICES PRN TO COMMUNICATE. USING CALL LIGHT APPROPRIATELY. DENIES SOB/CP. TELE SHOWS SR OVERNIGHT. PT WAS UP TO CHAIR FOR A COUPLE OF HOURS DURING THE NIGHT. BED/CHAIR ALARM IN USE. PT HAS HAD DIFFICULTY SWALLOWING; USING THICKENED LIQUIDS PER ORDER. DENIES FURTHER NEEDS. RESTING IN BED WITH CALL LIGHT IN REACH AT THIS TIME.
[2020-02-08 07:08] LABS: HIV SCREEN 4TH GENERATION WRFX Non Reactive (Non Reactive)
[2020-02-08 09:55] LABS: BASOPHILS ABSOLUTE AUTO 0.01 K/mm3 (0.00-0.23); BASOPHILS PERCENT AUTO 0 % (0-2); EOSINOPHILS PERCENT AUTO 0 % (0-6); Hematocrit 34.2 % (33.0-51.0); IMMATURE GRAN ABSOLUTE AUTO 0.04 K/mm3 (0.00-0.10); IMMATURE GRAN PERCENT AUTO 1 % (0-1); LYMPHOCYTES ABSOLUTE AUTO 1.14 K/mm3 (0.84-5.20); LYMPHOCYTES PERCENT AUTO 17 % (21-46); MONOCYTES PERCENT AUTO 4 % (4-13); Mean Corpuscular HGB Conc 32.2 g/dL (31.5-36.5); Mean Corpuscular Volume 87 fL (80-100); Mean Platelet Volume 11.2 fL (9.1-12.4); NEUTROPHILS ABSOLUTE AUTO 5.38 K/mm3 (1.96-9.15); NEUTROPHILS PERCENT AUTO 78 % (41-73); Platelet Count 172 K/mm3 (150-400); RDW Coefficient Variation 12.6 % (11.7-14.2); RDW Standard Deviation 40.4 fL (35.1-46.3); Red Blood Cell Count 3.93 M/mm3 (3.80-5.20); White Blood Cell Count 6.87 K/mm3 (4.00-11.30)
[2020-02-08 10:11] LABS: Alanine Aminotransfer (ALT/SGP 33 U/L (12-78); Albumin, Blood 2.1 g/dL (3.4-5.0); Albumin/Globulin Ratio 0.5 (0.8-1.8); Alk Phos 47 U/L (50-136); Anion Gap 7 mmol/L (6-16); Aspartate Aminotrans (AST/SGOT 74 U/L (12-37); Bilirubin, Total 0.5 mg/dL (0.1-1.0); Blood Urea Nitrogen 17 mg/dL (8-24); Bun/Creatinine Ratio 18.7 (12.0-20.0); CO2, Blood 25 mmol/L (21-32); Calcium, Blood 7.4 mg/dL (8.5-10.1); Chloride, Blood 110 mmol/L (98-108); Creatinine, Blood 0.91 mg/dL (0.40-1.00); Glomerular Filtration Rate >60 (60-); Glucose, Blood 122 mg/dL (70-99); Lactate Dehydrogenase (Ld),Bld 516 U/L (100-240); Potassium, Blood 3.4 mmol/L (3.5-5.5); Sodium, Blood 142 mmol/L (136-145); Total Protein, Blood 6.1 g/dL (6.4-8.2); Troponin I 0.073 ng/mL (0.000-0.040)
[2020-02-08 10:26] LABS: International Normalized Ratio 0.98; Prothrombin Time Results 10.5 Sec (9.7-11.5)
--- NOTE | 2020-02-08 12:07 | NUR ---
0745 VITAL SIGNS EDITED. 02 SAT INACURRATLY RECORDED AT 87%, ACTUAL VITAL 02 SAT 91% ON RA.
[2020-02-08 12:44] LABS: Anion Gap 6 mmol/L (6-16); Blood Urea Nitrogen 20 mg/dL (8-24); Bun/Creatinine Ratio 21.5 (12.0-20.0); CO2, Blood 27 mmol/L (21-32); Calcium, Blood 7.4 mg/dL (8.5-10.1); Chloride, Blood 109 mmol/L (98-108); Creatinine, Blood 0.93 mg/dL (0.40-1.00); Glomerular Filtration Rate >60 (60-); Glucose, Blood 129 mg/dL (70-99); Potassium, Blood 3.7 mmol/L (3.5-5.5); Sodium, Blood 142 mmol/L (136-145)
--- NOTE | 2020-02-08 17:18 | NUR ---
SHIFT SUMMARY: A/A/OX4 THROUGHOUT SHIFT. SPOUSE AT BEDSIDE DURING SHIFT. ENCOURAGED PO INTAKE WITH ASSITANCE. AMBULATED TO RESTROOM WITH MINIMAL ASSISTANCE. PLACED ON 1L O2 FOR SATS OF 91%, DENIES SOB. NO ACUTE MEDICAL CHANGES DURING SHIFT. WILL CONTINUE TO TREAT AND MONITOR UNTIL CHANGE OF SHIFT.
--- NOTE | 2020-02-08 20:39 | NUR ---
PATIENT COMMUNICATED VIA TELEPHONE, NO COMPLAINTS OF PAIN, SOG, DIFFICULTY BREATHING, THIRST OR HUNGER. REPOSITIONED IN BED, BACK RUB GIVEN FOR INDENTIONS DUE TO THE VARGAS PAD. BED IN LOWEST POSTITION, BED ALARM ON. PATIENT STATED THAT SHE IS TIRED. WILL BRING IN REGULAR MEDICATIONS AND ASSIST WITH APPLESAUSE. CALL LIGHT IN REACH PATIENT ASKED TO CALL AND NOT ATTEMP TO GET OOB ON HER OWN.
--- NOTE | 2020-02-09 06:05 | NUR ---
PATIENT DENIES PAIN OR DISCOMFORT. STATES THAT SHE IS NOT HAVING ANY SHORTNESS OF BREATH. PATIENT DOES HAVE SOME MILD GRUNTING WHILE RESTING. SHE ASKS FOR WATER, AND TAKES IT BY THE SPOONFUL, IF NOT PROVOKED BY ANOTHER SPOONFUL, PATIENT SITS FOR AWHILE WITH THE WATER IN HER MOUTH. SHE DID NOT HAVE ANY S/S OF CHOKING. CALL LIGHT IN REACH, NO ACUTE CHANGES.
[2020-02-09 09:47] LABS: BASOPHILS ABSOLUTE AUTO 0.01 K/mm3 (0.00-0.23); BASOPHILS PERCENT AUTO 0 % (0-2); EOSINOPHILS ABSOLUTE AUTO 0.02 K/mm3 (0.00-0.68); EOSINOPHILS PERCENT AUTO 0 % (0-6); Hematocrit 36.9 % (33.0-51.0); Hemoglobin 12.1 g/dL (11.5-16.0); IMMATURE GRAN ABSOLUTE AUTO 0.08 K/mm3 (0.00-0.10); IMMATURE GRAN PERCENT AUTO 1 % (0-1); LYMPHOCYTES ABSOLUTE AUTO 1.45 K/mm3 (0.84-5.20); LYMPHOCYTES PERCENT AUTO 19 % (21-46); MONOCYTES ABSOLUTE AUTO 0.45 K/mm3 (0.16-1.47); MONOCYTES PERCENT AUTO 6 % (4-13); Mean Corpuscular HGB 28.7 pg (26.0-34.0); Mean Corpuscular HGB Conc 32.8 g/dL (31.5-36.5); Mean Corpuscular Volume 88 fL (80-100); Mean Platelet Volume 11.7 fL (9.1-12.4); NEUTROPHILS ABSOLUTE AUTO 5.77 K/mm3 (1.96-9.15); NEUTROPHILS PERCENT AUTO 74 % (41-73); Platelet Count 197 K/mm3 (150-400); RDW Coefficient Variation 12.9 % (11.7-14.2); RDW Standard Deviation 41.3 fL (35.1-46.3); Red Blood Cell Count 4.21 M/mm3 (3.80-5.20); White Blood Cell Count 7.78 K/mm3 (4.00-11.30)
[2020-02-09 10:03] LABS: Prothrombin Time Results 10.7 Sec (9.7-11.5)
[2020-02-09] MEDS ORDERED: SULFAMETHOXAZO1 EAC1 PO (11:13)
--- NOTE | 2020-02-09 12:25 | NUR ---
VERBAL AND ALBANIAN WRITTEN INSTRUCTIONS GIVEN TO SPOUSE WITH CLEAR UNDERSTANDING. FOLLOW UP BY [facility] VIA TELEPHONE TOMORROW. SPOUSE STATES UNDERSTANDINGS THEY WILL BE CALLING. DC'D VIA WHEELCHAIR WITH MASK IN PLACE. SPOUSE UNDERSTANDS NEED TO QUARITENE.
[2020-02-10 04:10] LABS: HBSAG SCREEN Negative (Negative); HEP A AB, IGM Negative (Negative); HEP B CORE AB, TOT Negative (Negative); HEP C VIRUS AB <0.1 (0.0-0.9)
== END 2020-02-09 12:51 | disposition home or self-care (01) | DRG 177 ==
LOC: ER 11:51 → PCU 11:52
PROVIDERS: Emergency Medicine; Family Medicine; Nurse Practitioner Acute Care; ADMIT Internal Medicine
DX: U07.1 COVID-19 (principal); J12.89 Other viral pneumonia; I21.A1 Myocardial infarction type 2; N17.9 Acute kidney failure, unspecified; Z79.82 Long term (current) use of aspirin; Z79.4 Long term (current) use of insulin; E11.9 Type 2 diabetes mellitus without complications; Z86.73 Personal history of transient ischemic attack (TIA), and cerebral infarction without residual deficits; I10 Essential (primary) hypertension; E87.6 Hypokalemia; E86.0 Dehydration; B96.29 Other Escherichia coli [E. coli] as the cause of diseases classified elsewhere
CPT/HCPCS: 36415; 51702; 71045; 71046; 71260; 73522; 80048; 80053; 81001; 82728; 82803; 82947; 83605; 83615; 83880; 84484; 85025; 85379; 85610; 85730; 86140; 86704; 86708; 86803; 87040; 87077; 87086; 87186; 87340; 87389; 87804; 92526; 92610; 93005; 93010; 93306; 94762; 96365; 96366; 96372; 99285-25; A9270; A9270-GY; G0378; J0694; J0696; J1644; J7042; J7120; Q9967; U0003

== ENCOUNTER 2020-02-13 09:51 | Inpatient (IN) | payer OTHER ==
[~2020-02-13] VITALS: Ht 167.6 cm; Wt 69.7 kg
[~2020-02-13 09:51] MED LIST changes: +BENZ100A PO; +SULFAMETHOXAZO1 EAC1 PO
[2020-02-13 10:44] LABS: BASOPHILS ABSOLUTE AUTO 0.03 K/mm3 (0.00-0.23); BASOPHILS PERCENT AUTO 0 % (0-2); EOSINOPHILS ABSOLUTE AUTO 0.15 K/mm3 (0.00-0.68); EOSINOPHILS PERCENT AUTO 2 % (0-6); Hemoglobin 10.9 g/dL (11.5-16.0); IMMATURE GRAN ABSOLUTE AUTO 0.13 K/mm3 (0.00-0.10); IMMATURE GRAN PERCENT AUTO 1 % (0-1); LYMPHOCYTES ABSOLUTE AUTO 1.47 K/mm3 (0.84-5.20); LYMPHOCYTES PERCENT AUTO 16 % (21-46); MONOCYTES ABSOLUTE AUTO 0.71 K/mm3 (0.16-1.47); MONOCYTES PERCENT AUTO 8 % (4-13); Mean Corpuscular HGB 27.9 pg (26.0-34.0); Mean Corpuscular HGB Conc 32.1 g/dL (31.5-36.5); Mean Corpuscular Volume 87 fL (80-100); Mean Platelet Volume 10.7 fL (9.1-12.4); NEUTROPHILS ABSOLUTE AUTO 6.86 K/mm3 (1.96-9.15); NEUTROPHILS PERCENT AUTO 73 % (41-73); Platelet Count 381 K/mm3 (150-400); RDW Standard Deviation 41.2 fL (35.1-46.3); Red Blood Cell Count 3.91 M/mm3 (3.80-5.20); White Blood Cell Count 9.35 K/mm3 (4.00-11.30)
[2020-02-13 11:04] LABS: Albumin, Blood 1.9 g/dL (3.4-5.0); Albumin/Globulin Ratio 0.4 (0.8-1.8); Bilirubin, Total 0.6 mg/dL (0.1-1.0); Bun/Creatinine Ratio 17.1 (12.0-20.0); Calcium, Blood 7.5 mg/dL (8.5-10.1); Creatinine, Blood 1.05 mg/dL (0.40-1.00); Globulin, Blood 4.5 g/dL (2.2-4.0); Potassium, Blood 3.6 mmol/L (3.5-5.5); Total Protein, Blood 6.4 g/dL (6.4-8.2)
[2020-02-13 11:53] LABS: Source, Urine Voided
[2020-02-13 11:56] LABS: Appearance, Urine Hazy (Clear); Bilirubin, Urine Neg (Neg); Blood, Urine 2+ (Neg); Color, Urine Yellow (P-Yellow); Glucose Qualitative, Urine Neg (Neg); Ketones, Urine Neg (Neg); Leukocyte Esterase, Urine 3+ (Neg); Nitrite, Urine Pos (Neg); Protein, Urine 3+ (Neg); Urobilinogen, Urine NORM (Normal)
[2020-02-13 12:13] LABS: White Blood Cells, Urine 50-100 /hpf (0-5)
[2020-02-13 12:14] LABS: Bacteria Many /hpf; Squamous Epithelial Cells Rare /hpf (Few)
[2020-02-13] MEDS ORDERED: ALBU90OI INH (13:02)
[2020-02-13] MEDS ORDERED: LOSA25 PO (13:02)
[2020-02-13] MEDS ORDERED: CLOP75 PO (13:03)
[2020-02-13] MEDS ORDERED: FLUOXETINE HCL10 M1 PO (13:03)
[2020-02-13] MEDS ORDERED: HYDROCODONE-AC1 EAC9 PO (13:03)
[2020-02-13] MEDS ORDERED: PANT40 PO (13:04)
[2020-02-13] MEDS ORDERED: METF500 PO (13:04)
[2020-02-13] MEDS ORDERED: PARO10 PO (13:05)
[2020-02-13] MEDS ORDERED: BASAGLAR K100 UNIT/1 SC (13:05)
[2020-02-13] MEDS ORDERED: Amlodipine Bes2.5 MG PO (13:05)
[2020-02-13] MEDS ORDERED: ASPIR 8181 M1 PO (13:05)
[2020-02-13] MEDS ORDERED: ATORVASTATIN CA40 M1 PO (13:05)
[2020-02-13] MEDS ORDERED: ACET325 PO (13:30)
[2020-02-13] MEDS ORDERED: MELA3 PO (13:31)
[2020-02-13] MEDS ORDERED: CALCIUM 600 +1 EAC7 PO (13:31)
[2020-02-13] MEDS ORDERED: ONDA4ODT MM (13:31)
[2020-02-13] MEDS ORDERED: GUAIFENESIN DM PO (13:33)
[2020-02-13] MEDS ORDERED: Florastor250 MG PO (13:34)
--- NOTE | 2020-02-13 16:12 | NUR ---
PT ADMITTED FROM ED TO [place] [id number] AT 1440 . VSS. PT ON 2L OF O2; DENIES CP. PT IS A 1P ASSIST WITH FWW. AT BEDSIDE. PT IS ON DROPLET FOR COVID AND ESBL. PT DOES NOT SPEAK HUNGARIAN AND SPOUSE SPEAK VERY LITTLE HUNGARIAN; TRANSIT CLERK PHONE AT BEDSIDE AND USED DURING ADMISSION AND PT CARE. PT IS VERY NAUSEOUS; MEDICATIONS GIVEN AT ED. NS RUNNING; 20G IV ON R. PT EDUCATED ABOUT CALL LIGHTS. BED IS IN THE LOWEST POSITION; CALL LIGHTS WITHIN REACH.
--- NOTE | 2020-02-14 04:24 | NUR ---
LEAD TEACHER SUMMARY MANAGER FLOOR PHONE USED TO COMMUNICATE WITH PATIENT. DENIED N/V, SOB, AND PAIN. CURRENTLY ON 2L 02 VIA NC. UP TO BATHROOM WITH 1 ASSIST AND FWW. VSS. NO ACUTE CHANGES AT THIS TIME. BED IN LOWEST POSITION WITH CALL LIGHT IN REACH. WILL CONTINUE TO MONITOR AND REPORT TO ONCOMING RN.
[2020-02-14 05:08] LABS: BASOPHILS ABSOLUTE AUTO 0.02 K/mm3 (0.00-0.23); BASOPHILS PERCENT AUTO 0 % (0-2); EOSINOPHILS ABSOLUTE AUTO 0.09 K/mm3 (0.00-0.68); EOSINOPHILS PERCENT AUTO 1 % (0-6); Hematocrit 30.5 % (33.0-51.0); Hemoglobin 9.6 g/dL (11.5-16.0); IMMATURE GRAN PERCENT AUTO 1 % (0-1); LYMPHOCYTES ABSOLUTE AUTO 1.32 K/mm3 (0.84-5.20); LYMPHOCYTES PERCENT AUTO 16 % (21-46); MONOCYTES ABSOLUTE AUTO 0.67 K/mm3 (0.16-1.47); MONOCYTES PERCENT AUTO 8 % (4-13); Mean Corpuscular HGB 27.7 pg (26.0-34.0); Mean Corpuscular HGB Conc 31.5 g/dL (31.5-36.5); Mean Corpuscular Volume 88 fL (80-100); Mean Platelet Volume 10.9 fL (9.1-12.4); NEUTROPHILS ABSOLUTE AUTO 6.02 K/mm3 (1.96-9.15); NEUTROPHILS PERCENT AUTO 73 % (41-73); Platelet Count 384 K/mm3 (150-400); RDW Coefficient Variation 12.9 % (11.7-14.2); RDW Standard Deviation 41.2 fL (35.1-46.3); Red Blood Cell Count 3.47 M/mm3 (3.80-5.20); White Blood Cell Count 8.22 K/mm3 (4.00-11.30)
[2020-02-14 05:31] LABS: Alanine Aminotransfer (ALT/SGP 33 U/L (12-78); Albumin, Blood 1.7 g/dL (3.4-5.0); Albumin/Globulin Ratio 0.4 (0.8-1.8); Alk Phos 59 U/L (50-136); Anion Gap 4 mmol/L (6-16); Aspartate Aminotrans (AST/SGOT 33 U/L (12-37); Bilirubin, Total 0.4 mg/dL (0.1-1.0); Blood Urea Nitrogen 12 mg/dL (8-24); Bun/Creatinine Ratio 14.6 (12.0-20.0); CO2, Blood 26 mmol/L (21-32); Calcium, Blood 6.9 mg/dL (8.5-10.1); Chloride, Blood 114 mmol/L (98-108); Creatinine, Blood 0.82 mg/dL (0.40-1.00); Glomerular Filtration Rate >60 (60-); Glucose, Blood 57 mg/dL (70-99); Magnesium, Blood 2.1 mg/dL (1.6-2.4); Potassium, Blood 3.4 mmol/L (3.5-5.5); Sodium, Blood 144 mmol/L (136-145); Total Protein, Blood 5.7 g/dL (6.4-8.2)
--- NOTE | 2020-02-14 15:10 | NUR ---
SPOT CHECK OF OXYGENATION AT 1440 REVEALED SAT OF 84% ON RA, RR 26. DENIES DISCOMFORT OR TROUBLE BREATHING. REPOSITIONED PATIENT, ELEVATED HOB, NO APPRECIABLE CHANGE IN SATURATION. PLACED O2 @ 1 L/MIN NC, WITH O2 SAT 87-88%. INCREASED O2 TO 2 L/MIN NC, O2 SAT 90-91%. PT WITH OCC DEPILATORY PAINTER COUGH, VIRAL PNA, AND WAS COVID 19 + AT LAST ADMISSION. SPOKE TO DR. GODINEZ BY PHONE TO REPORT INCREASE IN OXYGEN NEEDS. WILL EVALUATE AND PLACE ORDERS IF NEEDED.
--- NOTE | 2020-02-14 17:40 | NUR ---
SHIFT SUMMARY: INCREASED OXYGEN NEEDS TODAY, NOW ON 2 L/MIN NC. DENIED PAIN. DENIES FEELING SOB, BUT IS SMALLS. C/O NAUSEA THIS MORNING AND AFTER LUNCH; MEDICATED PER EMAR WITH NO FURTHER COMPLAINTS. APPETITE IS FAIR. USING DIRECTOR OF PROGRAM MANAGEMENT PHONE FOR COMMUNICATION, SPOUSE AT BEDSIDE DURING THE DAY AND WILL SPEND THE NIGHT. GETTING UP TO BR OR BSC WITH SBA, WORKED WITH PHYSICAL THERAPY TODAY. POWERGLIDE IV PLACED AFTER TWO IV'S FAILED.
--- NOTE | 2020-02-15 03:55 | NUR ---
CLERK SUPERVISOR SUMMARY APPEARED TO SLEEP T/O THE NIGHT. AT BEDSIDE THIS SHIFT. PT DENIED NAUSEA AND PAIN AT THIS TIME. VSS. CURRENTLY ON 2L 02 VIA NC WITH SATS RUNNING IN THE LOW TO MID 90S. NO ACUTE CHANGES AT THIS TIME. BED IN LOWEST POSITION WITH CALL LIGHT IN REACH. WILL CONTINUE TO MONITOR AND REPORT TO ONCOMING RN.
[2020-02-15 05:25] LABS: BASOPHILS ABSOLUTE AUTO 0.01 K/mm3 (0.00-0.23); BASOPHILS PERCENT AUTO 0 % (0-2); EOSINOPHILS PERCENT AUTO 0 % (0-6); Hematocrit 31.5 % (33.0-51.0); Hemoglobin 10.3 g/dL (11.5-16.0); IMMATURE GRAN ABSOLUTE AUTO 0.04 K/mm3 (0.00-0.10); IMMATURE GRAN PERCENT AUTO 1 % (0-1); LYMPHOCYTES ABSOLUTE AUTO 0.75 K/mm3 (0.84-5.20); LYMPHOCYTES PERCENT AUTO 16 % (21-46); MONOCYTES ABSOLUTE AUTO 0.09 K/mm3 (0.16-1.47); MONOCYTES PERCENT AUTO 2 % (4-13); Mean Corpuscular HGB 28.1 pg (26.0-34.0); Mean Corpuscular HGB Conc 32.7 g/dL (31.5-36.5); Mean Corpuscular Volume 86 fL (80-100); Mean Platelet Volume 10.5 fL (9.1-12.4); NEUTROPHILS ABSOLUTE AUTO 3.89 K/mm3 (1.96-9.15); NEUTROPHILS PERCENT AUTO 81 % (41-73); Platelet Count 431 K/mm3 (150-400); RDW Standard Deviation 40.5 fL (35.1-46.3); Red Blood Cell Count 3.67 M/mm3 (3.80-5.20); White Blood Cell Count 4.78 K/mm3 (4.00-11.30)
[2020-02-15 05:56] LABS: Magnesium, Blood 1.9 mg/dL (1.6-2.4)
[2020-02-15 05:57] LABS: Alanine Aminotransfer (ALT/SGP 26 U/L (12-78); Albumin, Blood 2.5 g/dL (3.4-5.0); Albumin/Globulin Ratio 0.7 (0.8-1.8); Alk Phos 55 U/L (50-136); Anion Gap 5 mmol/L (6-16); Aspartate Aminotrans (AST/SGOT 19 U/L (12-37); Bilirubin, Total 0.5 mg/dL (0.1-1.0); Blood Urea Nitrogen 11 mg/dL (8-24); Bun/Creatinine Ratio 14.6 (12.0-20.0); CO2, Blood 24 mmol/L (21-32); CPK Creatine Kinase 62 U/L (26-193); Calcium, Blood 6.8 mg/dL (8.5-10.1); Chloride, Blood 112 mmol/L (98-108); Creatine Kinase MB <1.0 ng/mL (0.0-3.6); Creatine Kinase MB Index Unable to Calculate (0.0-4.0); Creatinine, Blood 0.75 mg/dL (0.40-1.00); Globulin, Blood 3.8 g/dL (2.2-4.0); Glomerular Filtration Rate >60 (60-); Glucose, Blood 199 mg/dL (70-99); Phosphorus, Blood 1.3 mg/dL (2.5-4.9); Potassium, Blood 3.9 mmol/L (3.5-5.5); Sodium, Blood 141 mmol/L (136-145); Total Protein, Blood 6.3 g/dL (6.4-8.2); Troponin I <0.015 ng/mL (0.000-0.040)
[2020-02-15 18:24] LABS: PCO2 Arterial 30.7 mmHg (35-45); pH Blood Arterial 7.46 (7.35-7.45)
--- NOTE | 2020-02-15 19:31 | NUR ---
SHIFT SUMMARY: RESULTS OF STAT ABG THIS EVENING SHOWED CRITICAL LOW PO2 AND O2 SAT; DR. DUDLEY NOTIFIED, RECEIVED TELEPHONE ORDER FOR CONTINUOUS OXIMETRY. PATIENT HAD BEEN TITRATED OFF OXYGEN EARLIER TODAY BASED ON PULSE OXIMETRY MEASURED BY THIS AUTHOR WITH VS MACHINE IN ROOM, WHICH SHOWED 92-93% ON RA AT 1600. DENIED PAIN. LUNG SOUNDS WITH COARSE CRACKLES THROUGHOUT, OCC ERGONOMICS CONSULTANT COUGH. GETTING UP TO BR WITH 1 PERSON ASSIST AND FWW. FAMILY AT BEDSIDE ALL DAY, WILL HELP WITH CARE AT TIMES. USING DIRECTOR IT PROJECT PHONE FOR TRANSLATION. SHE IS HOPING TO GO HOME SOON.
--- NOTE | 2020-02-16 04:26 | NUR ---
DOLL EYE SETTER SUMMARY PT ON 2L O2 VIA NC DURING STAY. ABG SHOWED DESATURATION AND ORDER FOR CONTINOUS BIOX OBTAINED. PT REPORTED SOB X2 DURING THIS SHIFT. RT CONSULTED, ADVISED TO INCREASE 02 NEEDED. CURRENTLY ON 4L WITH SATS AROUND 90. HOB ELEVATED AND ENCOURAGED DEEP BREATHING. VSS/AFEBRILE. TOLERATED FIRST DOSE OF REMDESIVIR. DAUGHTER AT BEDSIDE T/O NIGHT. NO ACUTE NEEDS AT THIS TIME. BED IN LOWEST POSITION WITH CALL LIGHT IN REACH. WILL CONTINUE TO MONITOR AND REPORT TO ONCOMING RN.
[2020-02-16 05:38] LABS: Albumin, Blood 2.4 g/dL (3.4-5.0); Anion Gap 6 mmol/L (6-16); Blood Urea Nitrogen 16 mg/dL (8-24); Bun/Creatinine Ratio 20.9 (12.0-20.0); CO2, Blood 26 mmol/L (21-32); Calcium, Blood 7.1 mg/dL (8.5-10.1); Chloride, Blood 111 mmol/L (98-108); Creatinine, Blood 0.77 mg/dL (0.40-1.00); Glomerular Filtration Rate >60 (60-); Glucose, Blood 244 mg/dL (70-99); Sodium, Blood 143 mmol/L (136-145)
--- NOTE | 2020-02-16 17:47 | NUR ---
SHIFT SUMMARY PT A/O AND SPEAKS KAZAKH ONLY. ROLL HAND PHONE IN ROOM WELL CAREGIVER WHO SPEAKS SOME SLOVAK. O2 NEEDS HAVE INCREASED THIS SHIFT. CURRENTLY ON 5 L O2 VIA NC. CONT PULSE OX READING IN THE LOW 90S. PT IS A 1 ASSIST W/FWW TO THE BATHROOM. PT ENCOURAGED TO PRONE WHEN LAYING IN BED. BLOOD GLUCOSE LEVELS HAVE ALSO INCREASED T/O THE SHIFT. INSULIN GIVEN ON A LOW SLIDING SCALE. PT IS COVID POSITIVE AND THE CAREGIVERS ARE ENCOURAGED TO WEAR A GOWN IF THEY ARE TO GO ANYWHERE IN THE HOSPITAL THAT IS NOT THE PT'S ROOM. THERE ARE 3 CAREGIVERS THAT ARE ALLOWED TO ROTATE AND ONE VISITOR. NO ACUTE CHANGES TO VS. RESPIRATORY THERAPY DID EDUCATION ON USING AN INHALOR WITH THE PT AND THE CAREGIVER. WCTM.
[2020-02-17] MEDS ORDERED: FLUO10 PO (00:57)
[2020-02-17] MEDS ORDERED: CLOP75 PO (00:57)
[2020-02-17] MEDS ORDERED: Norco 5-325 Ta1 EACH PO (00:58)
[2020-02-17] MEDS ORDERED: ATORVASTATIN CA20 MG PO (01:00)
[2020-02-17] MEDS ORDERED: AMLO5 PO (01:01)
--- NOTE | 2020-02-17 04:59 | NUR ---
SHIFT SUMMARY AOX3. SLOW TO RESPOND, SPEAKS TANZANIAN ONLY. COLLECTION OFFICER PHONE IN ROOM & CAREGIVER WHO SPEAKS MALAY @BEDSIDE TO ASSIST c COMMUNICATION. VSS. TITRATED PT DOWN TO 4L O2, SPO2 @92-94%. LUNGS SOUND DIM T/O. DENIES DYSPNEA, PAIN, N/V. APPEARS VERY TIRED/FATIGUED, EYES STAY CLOSED DURING MOST OF ASSESSMENT. CBG @HS WAS 361, 11U HUMALOG GIVEN PER SS. CALL LIGHT IN REACH.
--- NOTE | 2020-02-17 13:27 | NUR ---
Upon receiving an admit referral for spiritual care, I visit patient. Nelda is sitting on a chair and alert. Patient's spouse, Willian and someone who is able to speak Setswana enough to make help clarify the spiritual needs are present. Family informs me that they are requesting a prayer for the patient and that it is ok if I pray in Setswana that they will still be able to catch the basics of what is being said. I gladly provide prayer. Because of the language barrier my visit is short but I am able to learn that the family is hopeful and that the patient is strong both physically and emotionally. Although, they admit that patient is very tired still. Patient and family thank me for the visit and the prayer. I will continue to remain available to patient and family.
--- NOTE | 2020-02-17 18:35 | NUR ---
SHIFT SUMMARY PT A/O X3 AND ONLY SPEAKS KOREAN. SHE HAS A CAREGIVER IN THE ROOM THAT HELPS WITH THE MAJORITY OF HER CARE. IN ISO FOR COVID AND ESBL IN HER URINE. TITRATED FROM 5 LITERS O2 DOWN TO 4. SATTING IN THE MID 90'S. BLOOD GLUCOSE LEVELS HAVE STEADILY INCREASED T/O THE SHIFT. NO ACUTE CHANGES TO VS. WCTM.
--- NOTE | 2020-02-18 06:05 | NUR ---
SHIFT SUMMARY PT IS A 74 Y/O FEMALE, ADMITTED FOR ESBLE IN URINE. SHE IS A&O X 3, CROATIAN-SPEAKING, SBA TO THE BATHROOM. PT FAMILY REMAINS AT BEDSIDE. PT IS COVID19 POSITIVE. NO C/O PAIN, NAUSEA OR SOB. SHE IS ON 4L VIA NC, SATTING > 92%. BP WAS ELEVATED THIS AM AT 170/67, VITAL SIGNS OTHERWISE STABLE. PT SLEPT WELL THROUGH THE NIGHT. NO ACUTE CHANGES IN PT CONDITION NOTED DURING THE NIGHT. WILL CONINUE TO MONITOR AND TREAT PER EMAR UNTIL HAND OFF TO DAY SHIFT RN.
--- NOTE | 2020-02-18 19:35 | NUR ---
END OF SHIFT SUMMARY: PATIENT DENIED DISCOMFORT OR PAIN THROUGHOUT THE SHIFT. UTILIZING THE PASTE MIXING SUPERVISOR TELEPHONE IN THE ROOM, ABLE TO DISCUSS ASSESSMENT AND PLAN OF CARE. PATIENT REPORTS THAT HER BREATHING IS IMPROVED. BREATHING EVEN AND UNLABORED AT REST. MINIMAL SOB NOTED WITH AMBULATION. ABLE TO DECREASE O2 DOWN TO 3L VIA NC. PATIENT SATURATIONS AT 97% ON 3L. PATIENT REPORTED IMPROVEMENT IN BREATHING THE DAY PROGRESSED. CUED PATIENT TO LAY IN THE PRONE POSITION WHEN AT REST. PATIENT OBLIGED. NEXT TIME RN WAS IN THE ROOM, PATIENT WAS TAKING A NAP IN THE PRONE POSITION. PATIENT UP TO THE SHOWER AND SAT AT THE BEDSIDE FOR MEALS. PATIENT EXPRESSED APPRECIATION FOR THE CARE. PATIENT'S AT THE BEDSIDE MOST OF THE DAY. HE IS HELPFUL WITH THE CARE AND HELPING HIS UNDERSTAND THE INTERVENTIONS.
--- NOTE | 2020-02-18 22:37 | NUR ---
2000 DROPLET PRECAUTIONS MAINTAINED FOR COVID19; SPOUSE AT SIDE IN GOWN/MASK; PT DENIES RESPIRATORY DISTRESS; WEARING O2 AT 3L/M PER NASAL CANNULA.
--- NOTE | 2020-02-19 03:11 | NUR ---
SHIFT SUMMARY: 74 Y/O FEMALE RESTED COMFORTABLY ALL SHIFT WITH SPOUSE AT SIDE WHILE WEARING O2 AT 3L/M PER NASAL CANNULA WITH SATS AVERAGING 93%; C/O SOB WITH EXERCTION AND NONE AT REST; DENIES PAIN OR NAUSEA; SPOUSE AT SIDE IN ROOM AND ASSISTS WITH ALL ADLS; PTS LUNG SOUNDS ARE DIMINISHED THROUGHOUT; BED LOW POSITION WITH CALL LIGHT AT SIDE.
--- NOTE | 2020-02-19 19:10 | NUR ---
SHIFT SUMMARY: NO ACUTE CHANGES TO REPORT THIS SHIFT. PT A&O; CALM AND COOPERATIVE WITH CARE. NON-JAPANESE SPEAKING; STAMP CLERK PHONE IN ROOM. NO C/O PAIN THIS SHIFT. COVID POSITIVE; REMDESIVIR CONTINUING. IV ABX CONTINUING. REPORT GIVEN TO ONCOMING RN.
--- NOTE | 2020-02-20 02:41 | NUR ---
02/19/201999 PT RESTING COMFORTABLY IN BED WITH SPOUSE AT SIDE; DROPLET ISOLATION MAINTAINED.
--- NOTE | 2020-02-20 05:05 | NUR ---
SHIFT SUMMARY: 74 Y/O OBESE FEMALE RESTED COMFORTABLY ALL SHIFT; PT VOICED LESS DYSPNEA WITH ACTIVITY THIS SHIFT WHILE WEARING O2 AT 2L/M PER NASAL CANNULA; PT CONTINUES ON DROPLET ISOLATION PRECAUTIONS; SPOUSE AT SIDE AND SUPPORTIVE; DENIES PAIN OR NAUSEA; BED LOW POSITION WITH CALL LIGHT AT SIDE.
[2020-02-20 11:09] LABS: PCO2 Arterial 38.1 mmHg (35-45); PO2 Arterial 71.1 mmHg (80-100); pH Blood Arterial 7.47 (7.35-7.45)
[2020-02-20] MEDS ORDERED: ASCO500 PO (17:05)
[2020-02-20] MEDS ORDERED: FERSU300 PO (17:05)
[2020-02-20] MEDS ORDERED: HYDRA25 PO (17:06)
[2020-02-20] MEDS ORDERED: BASAGLAR K100 UNIT/1 SC (17:07)
[2020-02-20] MEDS ORDERED: HUMALOG KW100 UNIT/1 SC ×2 (17:07→17:08)
[2020-02-20] MEDS ORDERED: Vitamin D2000 UNIT PO (17:08)
--- NOTE | 2020-02-20 19:15 | NUR ---
PATIENT DISCHARGE: PATIENT DISCHARGED TO HOME / XFR TO HOME HEALTH THIS SHIFT. MEDICATION RECONCILIATION COMPLETED; MED LIST FAXED TO [facility]. DISCHARGE EDUCATION COMPLETED WITH PATIENT AND FAMILY; SPECIFIC INSTRUCTIONS R/T COVID & ISOLATION EMPHASIZED. PATIENT TRANSPORTED TO EXIT BY [facility] WITH WHEELCHAIR AT 1824. PATIENT DEPARTED [facility] VIA PRIVATE AUTO.
== END 2020-02-20 18:23 | disposition home or self-care (01) | DRG 177 ==
LOC: ER 09:51 → MEDS 13:43
PROVIDERS: Emergency Medicine; Internal Medicine; ADMIT Family Medicine
PROC: 8E0ZXY6 Isolation (ICD-10-PCS; principal; 2020-02-13)
PROC: XW033E5 Introduction of Remdesivir Anti-infective into Peripheral Vein, Percutaneous Approach, New Technology Group 5 (ICD-10-PCS; 2020-02-15)
DX: U07.1 COVID-19 (principal); J12.89 Other viral pneumonia; J96.01 Acute respiratory failure with hypoxia; N39.0 Urinary tract infection, site not specified; I50.30 Unspecified diastolic (congestive) heart failure; B96.20 Unspecified Escherichia coli [E. coli] as the cause of diseases classified elsewhere; E87.6 Hypokalemia; E83.39 Other disorders of phosphorus metabolism; E11.65 Type 2 diabetes mellitus with hyperglycemia; I11.0 Hypertensive heart disease with heart failure; E88.09 Other disorders of plasma-protein metabolism, not elsewhere classified; E83.51 Hypocalcemia; D64.9 Anemia, unspecified; E11.69 Type 2 diabetes mellitus with other specified complication; E66.9 Obesity, unspecified; Z86.73 Personal history of transient ischemic attack (TIA), and cerebral infarction without residual deficits; Z79.82 Long term (current) use of aspirin; Z79.4 Long term (current) use of insulin; Z68.23 Body mass index [BMI] 23.0-23.9, adult
CPT/HCPCS: 36415; 36600; 71045; 80053; 80069; 81001; 82550; 82553; 82803; 82947; 83690; 83735; 83880; 84100; 84145; 84443; 84484; 85025; 86140; 87040; 87077; 87086; 87186; 93005; 93010; 94640; 94760; 94761; 94762; 96361; 96365; 96375; 97110; 97162; 97165; 97530; 99285-25; A9270-GY; C1751; J1100; J1650; J1940; J2185; J2405; J2765; J7030; J7060; P9046

== ENCOUNTER 2020-03-10 10:15 | Emergency (ER) | payer OTHER ==
[~2020-03-10] VITALS: Ht 157.5 cm; Wt 63.5 kg
[~2020-03-10 10:15] MED LIST changes: +ALBU90OI INH; +ASCO500 PO; +ASPIR 8181 M1 PO; +ATORVASTATIN CA20 MG PO; +ATORVASTATIN CA40 M1 PO; +BASAGLAR K100 UNIT/1 SC; +CALCIUM 600 +1 EAC7 PO; +FERSU300 PO; +FLUOXETINE HCL10 M1 PO; +Florastor250 MG PO; +GUAIFENESIN DM PO; +HUMALOG KW100 UNIT/1 SC; +HYDRA25 PO; +HYDROCODONE-AC1 EAC9 PO; +LOSA25 PO; +MELA3 PO; +ONDA4ODT MM; +PARO10 PO; +Vitamin D2000 UNIT PO
[2020-03-10 13:05] LABS: Calcium, Ionized (POC) 1.08 mmol/L (1.10-1.46); Chloride (POC) 106 mmol/L (98-108); Creatinine (POC) 0.7 mg/dL (0.6-1.0); Glucose (ISTAT POC) 165 mg/dL (70-99); Hemoglobin (POC) 11.9 g/dL (12.0-16.0); Potassium (POC) 4.4 mmol/L (3.5-5.5); Sodium (POC) 140 mmol/L (135-148); Total CO2 (POC) 23 mmol/L (21-32)
== END 2020-03-10 14:05 | disposition home or self-care (01) ==
LOC: ER 10:15
PROVIDERS: Emergency Medicine
DX: I10 Essential (primary) hypertension (principal); R51.9 Headache, unspecified; F03.90 Unspecified dementia, unspecified severity, without behavioral disturbance, psychotic disturbance, mood disturbance, and anxiety; Z86.19 Personal history of other infectious and parasitic diseases; Z79.899 Other long term (current) drug therapy; Z79.82 Long term (current) use of aspirin; Z79.4 Long term (current) use of insulin; Z79.02 Long term (current) use of antithrombotics/antiplatelets; Z86.73 Personal history of transient ischemic attack (TIA), and cerebral infarction without residual deficits
CPT/HCPCS: 70450; 80047; 85014; 93005; 93010; 99285-25

== ENCOUNTER 2021-08-01 08:04 | Emergency (ER) | payer OTHER ==
[~2021-08-01] VITALS: Ht 152.4 cm; Wt 65.8 kg
[2021-08-01 08:47] LABS: BASOPHILS ABSOLUTE AUTO 0.04 K/mm3 (0.00-0.23); BASOPHILS PERCENT AUTO 0 % (0-2); EOSINOPHILS PERCENT AUTO 2 % (0-6); Hematocrit 40.1 % (33.0-51.0); Hemoglobin 13.2 g/dL (11.5-16.0); IMMATURE GRAN ABSOLUTE AUTO 0.05 K/mm3 (0.00-0.10); IMMATURE GRAN PERCENT AUTO 0 % (0-1); LYMPHOCYTES ABSOLUTE AUTO 1.04 K/mm3 (0.84-5.20); LYMPHOCYTES PERCENT AUTO 9 % (21-46); MONOCYTES ABSOLUTE AUTO 0.13 K/mm3 (0.16-1.47); MONOCYTES PERCENT AUTO 1 % (4-13); Mean Corpuscular HGB 29.1 pg (26.0-34.0); Mean Corpuscular HGB Conc 32.9 g/dL (31.5-36.5); Mean Corpuscular Volume 88 fL (80-100); Mean Platelet Volume 12.5 fL (9.1-12.4); NEUTROPHILS ABSOLUTE AUTO 10.71 K/mm3 (1.96-9.15); NEUTROPHILS PERCENT AUTO 88 % (41-73); Platelet Count 156 K/mm3 (150-400); RDW Coefficient Variation 12.5 % (11.7-14.2); RDW Standard Deviation 40.6 fL (35.1-46.3); Red Blood Cell Count 4.54 M/mm3 (3.80-5.20); White Blood Cell Count 12.17 K/mm3 (4.00-11.30)
[2021-08-01 09:07] LABS: Albumin, Blood 3.6 g/dL (3.4-5.0); Bilirubin, Total 0.7 mg/dL (0.1-1.0); Bun/Creatinine Ratio 21.3 (12.0-20.0); Calcium, Blood 8.3 mg/dL (8.5-10.1); Creatinine, Blood 0.99 mg/dL (0.40-1.00); Globulin, Blood 3.7 g/dL (2.2-4.0); Total Protein, Blood 7.3 g/dL (6.4-8.2)
[2021-08-01 09:25] LABS: Source, Urine Clean Catch
[2021-08-01 09:30] LABS: Appearance, Urine Hazy (Clear); Bilirubin, Urine Neg (Neg); Blood, Urine 2+ (Neg); Color, Urine Yellow (P-Yellow); Glucose Qualitative, Urine Neg (Neg); Ketones, Urine Neg (Neg); Leukocyte Esterase, Urine 2+ (Neg); Nitrite, Urine Pos (Neg); Protein, Urine 3+ (Neg); Urobilinogen, Urine NORM (Normal)
[2021-08-01 09:43] LABS: Bacteria Many /hpf; Squamous Epithelial Cells Few /hpf (Few); White Blood Cells, Urine 50-100 /hpf (0-5)
[2021-08-01] MEDS ORDERED: ONDA4ODT MM (10:05)
[2021-08-01] MEDS ORDERED: CEPH500 PO (10:05)
== END 2021-08-01 10:44 | disposition home or self-care (01) ==
LOC: ER 08:04
PROVIDERS: Physician Assistant
DX: N39.0 Urinary tract infection, site not specified (principal); I10 Essential (primary) hypertension; Z86.73 Personal history of transient ischemic attack (TIA), and cerebral infarction without residual deficits; Z79.82 Long term (current) use of aspirin; Z79.899 Other long term (current) drug therapy; Z79.4 Long term (current) use of insulin
CPT/HCPCS: 80053; 81001; 85025; 87077; 87086; 87186; 93005; 93010; 99283-25; A9270; J0696

== ENCOUNTER → 2021-10-25 | Outpatient (CLI) | payer OTHER ==
[~2021-10-25] MED LIST changes: +CEPH500 PO
[2021-10-25 15:29] LABS: U Amphetamine Screen Not Detected; U Barbituate Screen Not Detected; U Benzodiazapine Screen DETECTED; U Buprenorphine Screen Not Detected; U Cannabinoids Screen Not Detected; U Cocaine Screen Not Detected; U Methadone Screen Not Detected; U Methamphetamine Screen Not Detected; U Opiates Screen Not Detected; U Oxycodone Screen Not Detected; U Phencyclidine Screen Not Detected; U Propoxyphene Screen Not Detected
== END | disposition home or self-care (01) ==
LOC: LAB SHORT 13:13 → LAB 13:13
PROVIDERS: Internal Medicine Hematology & Oncology
DX: Z51.81 Encounter for therapeutic drug level monitoring (principal); Z79.899 Other long term (current) drug therapy